=== PATIENT | female | born 1955 | race Caucasian/White ===

== ENCOUNTER → 2016-07-27 | Outpatient (REF) | payer MEDICARE, OTHER ==
[~2016-07-27] MED LIST: AMBI10TA PO; ATIV1TAB10 PO; CALCIUM+D PO; CARV12.5 PO; CELE40TA PO; CENTTAB47 PO; CLAR5TAB PO; CRES20TA PO; DOCU10CA PO; DULO30CA PO; FURO20TA2 PO; GLUC1CAP9 PO; NAPR375T PO; PERC5TAB6 PO; RANI1TAB6 PO; STOO100C PO; TRAM50TA2 PO; VERA1TAB11 PO; VICO7.5T11 PO; VITA200016 PO
[2016-07-27 11:37] LABS: MEAN CORPUSCULAR HEMOGLOBIN 28.8 pg (27.0-33.0); MEAN CORPUSCULAR HGB CONC 32.7 g/dl (32.0-36.5); MEAN CORPUSCULAR VOLUME 88.2 fl (80.0-96.0); RED CELL DISTRIBUTION WIDTH 12.8 % (11.5-14.5); WHITE BLOOD COUNT 9.6 K/mm3 (4.0-10.0)
[2016-07-27 11:58] LABS: ALBUMIN 3.8 GM/DL (3.2-5.2); ALBUMIN/GLOBULIN RATIO 1.31 (1.00-1.93); BILIRUBIN,TOTAL 0.3 MG/DL (0.2-1.0); CALCIUM LEVEL 8.2 MG/DL (8.8-10.2); CREATININE FOR GFR 1.31 MG/DL (0.55-1.02); GLOMERULAR FILTRATION RATE 43.8 (>45); POTASSIUM SERUM 4.4 MEQ/L (3.5-5.1); TOTAL PROTEIN 6.7 GM/DL (6.4-8.2)
== END ==
LOC: M SFHCCLAY 06:50
PROVIDERS: ATTEND Nurse Practitioner Family
DX: I10 Essential (primary) hypertension (principal); E78.4 Other hyperlipidemia; E55.9 Vitamin D deficiency, unspecified

== ENCOUNTER → 2016-10-06 | Outpatient (CLI) | payer MEDICARE, OTHER ==
--- NOTE | 2016-10-06 09:43 | REP ---
RENAL NUCLEAR SCAN WITH FLOW AND FUNCTION: Following the intravenous administration of 8.7 mCi of technetium 99m MAG-3, immediate flow images are obtained in the posterior projection showing symmetrical blood flow. Delayed renal function images are performed in the posterior projection for 30 minutes. No parenchymal defect is seen. There is bilateral cortical washout which appears somewhat delayed. There is bilateral excretion with no hydronephrosis or evidence of urinary tract obstruction. Split function is 51% on the left and 48.3% on the right. Time to peak is somewhat delayed bilaterally, 5 minutes on the left and 7 minutes on the right. T1/2 is 27.9 minutes on the left and could not be calculated on the right as it is in excess of 30 minutes. Renal function curves are moderately shallow in their downward slopes. There is minimal post void residual in the urinary bladder after voiding. IMPRESSION: Moderately diminished function of both kidneys. No hydronephrosis or evidence of urinary tract obstruction. Signed by Bertin Coyne MD 10/06/2016 03:25 P
--- NOTE | 2016-10-06 10:33 | REP ---
Urinary tract sonography: History: Chronic renal disease. Hypertension. Findings: Scanning at the level of the urinary bladder shows that it is empty at the time of scanning. Renal cortical echogenicity pattern is normal. There is a 1.2 cm cyst in the upper pole of the right kidney and a 3.1 cm cyst is seen in the upper pole of the left kidney. There is no evidence of renal mass on either side. Right renal dimensions are 9.6 x 4.5 x 5.0 cm. Left kidney measures 9.2 x 5.6 x 5.2 cm. Impression: There is a simple cyst in the upper pole of each kidney. No other abnormality. Signed by Edwin Clarke MD 10/06/2016 11:22 A
== END ==
LOC: M RAD 06:53
PROVIDERS: ATTEND Internal Medicine Nephrology
DX: I15.0 Renovascular hypertension (principal); N18.3 Chronic kidney disease, stage 3 (moderate); Q61.02 Congenital multiple renal cysts
CPT/HCPCS: 76775; 78707; A9562

== ENCOUNTER → 2016-11-21 | Outpatient (REF) | payer MEDICARE, OTHER | LOC: M SFHCCLAY 06:52 | PROVIDERS: ATTEND Nurse Practitioner Family | DX: E78.4 Other hyperlipidemia (principal); E55.9 Vitamin D deficiency, unspecified ==

== ENCOUNTER → 2016-11-23 | Outpatient (REF) | payer MEDICARE, OTHER | LOC: M SFHCCLAY 10:47 | PROVIDERS: ATTEND Nurse Practitioner Family | DX: I10 Essential (primary) hypertension (principal) | CPT/HCPCS: 86803; G0463 ==

== ENCOUNTER → 2017-02-15 | Outpatient (REF) | payer MEDICARE, OTHER ==
[~2017-02-15] MED LIST changes: +ASPI81TA85 PO; +CLAR1TAB13 PO; +FLON1SPR; +FOSA70TA PO; +NAPR-751 PO; +PERC5TAB12 PO; -PERC5TAB6 PO; +PLAV1TAB2 PO; +TOPI25TA10 PO; +VITA20008 PO; +VITA500T3 PO
== END ==
LOC: M SFHCCLAY 11:22
PROVIDERS: ATTEND Nurse Practitioner Family
DX: R19.7 Diarrhea, unspecified (principal)

== ENCOUNTER → 2017-03-02 | Outpatient (REF) | payer MEDICARE, OTHER ==
[2017-03-02 12:01] LABS: MEAN CORPUSCULAR HEMOGLOBIN 29.8 pg (27.0-33.0); MEAN CORPUSCULAR HGB CONC 33.3 g/dl (32.0-36.5); MEAN CORPUSCULAR VOLUME 89.5 fl (80.0-96.0); RED CELL DISTRIBUTION WIDTH 12.7 % (11.5-14.5)
[2017-03-02 12:41] LABS: ALBUMIN 3.7 GM/DL (3.2-5.2); ALBUMIN/GLOBULIN RATIO 1.28 (1.00-1.93); BILIRUBIN,TOTAL 0.3 MG/DL (0.2-1.0); CREATININE FOR GFR 1.22 MG/DL (0.55-1.02); GLOMERULAR FILTRATION RATE 47.5 (>45); POTASSIUM SERUM 4.2 MEQ/L (3.5-5.1); THYROXINE (T4) 11.8 UG/DL (4.5-12.0); TOTAL PROTEIN 6.6 GM/DL (6.4-8.2)
== END ==
LOC: M SFHCCLAY 07:25
PROVIDERS: ATTEND Nurse Practitioner Family
DX: R63.0 Anorexia (principal); E78.4 Other hyperlipidemia; R63.4 Abnormal weight loss; E55.9 Vitamin D deficiency, unspecified

== ENCOUNTER 2017-04-17 12:00 | Day surgery (SDC) | payer MEDICARE, OTHER ==
[~2017-04-17] VITALS: Ht 160 cm; Wt 85.7 kg
[~2017-04-17 12:00] MED LIST changes: -TOPI25TA10 PO; -VITA500T3 PO
[2017-04-17] MEDS ORDERED: LR 1,000 ML IV SCH (12:15)
[2017-04-17] MEDS ORDERED: PROPOFOL 200 MG/20 ML VIAL As Ordered ONE ×3 (14:56→15:18)
--- NOTE | 2017-04-17 15:34 | ROOR ---
Patient Name: Tianna Nick Procedure Date: 04/17/2017 2:22 PM Date of : 1955 Age: 61 Room: [facility] Gender: Female Note Status: Finalized Procedure: Upper GI endoscopy Indications: Dysphagia Providers: Brady Andersen MD Referring MD: Indira Bellamy NP Requesting Provider: Medicines: Monitored Anesthesia Care Complications: No immediate complications. Procedure: Pre-Anesthesia Assessment: - Prior to the procedure, a History and Physical was performed, and patient medications and allergies were reviewed. The patient is competent. The risks and benefits of the procedure and the sedation options and risks were discussed with the patient. All questions were answered and informed consent was obtained. Patient identification and proposed procedure were verified by the physician, the nurse and the miniature train driver in the procedure room. Mental Status Examination: alert and oriented. Airway Examination: normal oropharyngeal airway and neck mobility. CV Examination: regular rate and rhythm. Prophylactic Antibiotics: The patient does not require prophylactic antibiotics. Prior Anticoagulants: The patient has taken no previous anticoagulant or antiplatelet agents. ASA Grade Assessment: III - A patient with severe systemic disease. After reviewing the risks and benefits, the patient was deemed in satisfactory condition to undergo the procedure. The anesthesia plan was to use monitored anesthesia care (MAC). Immediately prior to administration of medications, the patient was re-assessed for adequacy to receive sedatives. The heart rate, respiratory rate, oxygen saturations, blood pressure, adequacy of pulmonary ventilation, and response to care were monitored throughout the procedure. The physical status of the patient was re-assessed after the procedure. The Endoscope was introduced through the mouth, and advanced to the third part of duodenum. The upper GI endoscopy was accomplished without difficulty. The patient tolerated the procedure well. Findings: One benign-appearing, intrinsic stenosis was found 34 cm from the incisors. This stenosis was moderately severe and measured 1.4 cm (inner diameter) x less than one cm (in length). The stenosis was traversed. A TTS dilator was passed through the scope. Dilation with a 15-16.5-18 mm balloon dilator was performed to 18 mm. The dilation site was examined following endoscope reinsertion and showed moderate improvement in luminal narrowing. Diffuse moderately erythematous mucosa without bleeding was found on the greater curvature of the stomach, in the gastric antrum and in the prepyloric region of the stomach. The examined duodenum was normal. Impression: - Benign-appearing esophageal stenosis. Dilated. - Erythematous mucosa in the greater curvature, antrum and prepyloric region of the stomach. - Normal examined duodenum. - No specimens collected. Recommendation: - Discharge patient to home. - Resume previous diet. - Continue present medications. - Await pathology results. - Return to my office in 2 weeks. Brady Andersen MD 04/17/2017 3:33:58 PM Number of Addenda: 0 Note Initiated On: 04/17/2017 2:22 PM Estimated Blood Loss: Estimated blood loss was minimal.
[2017-04-17 15:50] VITALS: BP 139/85
--- NOTE | 2017-04-17 16:17 | ROOR ---
Patient Name: Tianna Nick Procedure Date: 04/17/2017 2:23 PM Date of : 1955 Age: 61 Gender: Female Note Status: Finalized Procedure: Colonoscopy Indications: Screening for colorectal malignant neoplasm Providers: Brady Andersen MD Referring MD: Indira Bellamy NP Requesting Provider: Medicines: Monitored Anesthesia Care Complications: No immediate complications. Procedure: Pre-Anesthesia Assessment: - Prior to the procedure, a History and Physical was performed, and patient medications and allergies were reviewed. The patient is competent. The risks and benefits of the procedure and the sedation options and risks were discussed with the patient. All questions were answered and informed consent was obtained. Patient identification and proposed procedure were verified by the physician, the nurse and the third rail installer in the procedure room. Mental Status Examination: alert and oriented. Airway Examination: normal oropharyngeal airway and neck mobility. CV Examination: regular rate and rhythm. Prophylactic Antibiotics: The patient does not require prophylactic antibiotics. Prior Anticoagulants: The patient has taken no previous anticoagulant or antiplatelet agents. ASA Grade Assessment: III - A patient with severe systemic disease. After reviewing the risks and benefits, the patient was deemed in satisfactory condition to undergo the procedure. The anesthesia plan was to use monitored anesthesia care (MAC). Immediately prior to administration of medications, the patient was re-assessed for adequacy to receive sedatives. The heart rate, respiratory rate, oxygen saturations, blood pressure, adequacy of pulmonary ventilation, and response to care were monitored throughout the procedure. The physical status of the patient was re-assessed after the procedure. The Colonoscope was introduced through the anus and advanced to the cecum, identified by appendiceal orifice and ileocecal valve. The colonoscopy was somewhat difficult due to vigorous peristalsis. The patient tolerated the procedure well. The quality of the bowel preparation was good. Findings: The perianal and digital rectal examinations were normal. Multiple medium-mouthed diverticula were found in the sigmoid colon. A 15 mm polyp was found in the distal ascending colon. The polyp was flat. The polyp was removed with a hot snare. Polyp resection was incomplete, and the resected tissue was partially retrieved. Polyp resection was incomplete due to the polypectomy being technically difficult and complex. A 8 mm polyp was found in the proximal transverse colon. The polyp was sessile. The polyp was removed with a hot snare. Resection and retrieval were complete. Impression: - Diverticulosis in the sigmoid colon. - One 15 mm polyp in the distal ascending colon, removed with a hot snare. Polyp resection was incomplete, and the resected tissue was partially retrieved. - One 8 mm polyp in the proximal transverse colon, removed with a hot snare. Resected and retrieved. Recommendation: - Await pathology results. - Discharge patient to home. - Resume previous diet. - Continue present medications. - Return to endoscopist in 2 weeks. Brady Andersen MD 04/17/2017 4:16:35 PM Number of Addenda: 0 Note Initiated On: 04/17/2017 2:23 PM Estimated Blood Loss: Estimated blood loss was minimal.
[2017-05-03] MEDS ORDERED: VITA500T3 PO (08:28)
[2017-05-03] MEDS ORDERED: TOPI25TA10 PO (08:28)
== END 2017-04-17 16:08 | disposition home or self-care (01) ==
LOC: M OPP 12:00
PROVIDERS: ATTEND Surgery
DX: Z12.11 Encounter for screening for malignant neoplasm of colon (principal); D12.2 Benign neoplasm of ascending colon; D12.3 Benign neoplasm of transverse colon; K57.30 Diverticulosis of large intestine without perforation or abscess without bleeding; K22.2 Esophageal obstruction; R13.10 Dysphagia, unspecified; K21.9 Gastro-esophageal reflux disease without esophagitis; J32.9 Chronic sinusitis, unspecified; G43.709 Chronic migraine without aura, not intractable, without status migrainosus; I10 Essential (primary) hypertension; I25.2 Old myocardial infarction; I25.10 Atherosclerotic heart disease of native coronary artery without angina pectoris; Z98.61 Coronary angioplasty status; F41.9 Anxiety disorder, unspecified; E78.00 Pure hypercholesterolemia, unspecified; E66.01 Morbid (severe) obesity due to excess calories; F32.9 Major depressive disorder, single episode, unspecified; E55.9 Vitamin D deficiency, unspecified; F17.210 Nicotine dependence, cigarettes, uncomplicated; Z79.02 Long term (current) use of antithrombotics/antiplatelets; Z79.82 Long term (current) use of aspirin; Z79.899 Other long term (current) drug therapy; Z88.5 Allergy status to narcotic agent

== ENCOUNTER 2017-05-15 06:55 | Day surgery (SDC) | payer MEDICARE, OTHER ==
[~2017-05-15] VITALS: Ht 160 cm; Wt 85.3 kg
[~2017-05-15 06:55] MED LIST changes: +TOPI25TA10 PO; +VITA500T3 PO
[2017-05-15] MEDS ORDERED: LR 1,000 ML IV SCH ×3 (07:00→11:00)
[2017-05-15] MEDS ORDERED: METHYLENE BLUE 0.5% (5MG/ML) 10 ML AMP (PROVAYBLUE)(Q9968 PER 1MG) As Ordered ONE (08:39)
[2017-05-15] MEDS ORDERED: EPINEPHrine 1MG/10ML SYRINGE 1.5IN As Ordered ONE (08:39)
[2017-05-15] MEDS ORDERED: LIDOCAINE W/EPINEPHRINE 1% 20ML VIAL As Ordered ONE ×2 (08:39→08:40)
[2017-05-15] MEDS ORDERED: EPINEPHrine 1MG/ML INJ 30ML MD-VIAL As Ordered ONE (08:41)
[2017-05-15] MEDS ORDERED: MIDAZOLAM INJ 2 MG/2 ML VIAL (J2250) As Ordered ONE (09:12)
[2017-05-15] MEDS ORDERED: fentaNYL 250 MCG/5 ML INJECTION (J3010) As Ordered ONE (09:13)
[2017-05-15] MEDS ORDERED: PROPOFOL 500 MG/50 ML VIAL As Ordered ONE (09:13)
[2017-05-15] MEDS ORDERED: ROCURONIUM BROMIDE 50 MG/5 ML VIAL/SYRINGE As Ordered ONE (09:14)
[2017-05-15] MEDS ORDERED: LIDOCAINE 2% INJ 100 MG/5 ML SDV (FOR ANES.) As Ordered ONE (09:14)
[2017-05-15] MEDS ORDERED: dexameTHASONE 4 MG/ML 1ML VIAL (J1100) As Ordered ONE (09:14)
[2017-05-15] MEDS ORDERED: ONDANSETRON 4MG/2ML VIAL (J2405) As Ordered ONE (09:14)
[2017-05-15] MEDS ORDERED: PHENYLephrine HCL 500 MCG/5 ML (100MCG/ML) SYRINGE (J2370) As Ordered ONE (09:15)
[2017-05-15] MEDS ORDERED: ePHEDrine SULFATE 25 MG/5 ML(5MG/ML) SYRINGE As Ordered ONE (09:15)
[2017-05-15] MEDS ORDERED: NEOSTIGMINE 10 MG/10 ML VIAL (J2710) As Ordered ONE (10:29)
[2017-05-15] MEDS ORDERED: GLYCOPYRROLATE INJ 0.2 MG/ML 2 ML VIAL As Ordered ONE (10:29)
[2017-05-15] MEDS ORDERED: LABETALOL HCL 100 MG/20 ML VIAL As Ordered ONE (10:32)
[2017-05-15] MEDS ORDERED: MEPERIDINE INJ 25 MG/ML VIAL (J2175) IV PRN (11:00)
[2017-05-15] MEDS ORDERED: NORCO, ANEXSIA 5/325MG TABLET (HYDROcodone/ACETAMINOPHEN) PO PRN (11:00)
[2017-05-15] MEDS ORDERED: ONDANSETRON 4MG/2ML VIAL (J2405) IV PRN (11:00)
[2017-05-15] MEDS ORDERED: fentaNYL 100 MCG/2 ML INJECTION (J3010) IV PRN (11:00)
[2017-05-15] MEDS ORDERED: ACETAMINOPH W/CODEINE #3 TAB UD PO PRN (11:00)
--- NOTE | 2017-05-15 11:02 | RO ---
DATE OF PROCEDURE: 05/15/2017 PREPROCEDURE DIAGNOSES: Recurrent rhinosinusitis, right nasal valve collapse, nasoseptal deviation. POSTPROCEDURE DIAGNOSES: Recurrent rhinosinusitis, right nasal valve collapse, nasoseptal deviation. OPERATIVE PROCEDURE: Septoplasty, bilateral ethmoidectomy, right nasal valve repair, turbinectomy. SURGEON: Gerard Mccollum MD RAILWAY HEAD TENDER: ANESTHESIA: FINDINGS: The patient had more bleeding than usual. Estimated blood loss was 100 mL. The patient had been taking Plavix before but had stopped preoperatively. There was some thickened mucosa in ethmoid air cells. Because of the amount of bleeding, I decided not to complete the enterostomy part of the procedure. DESCRIPTION OF PROCEDURE: Under general anesthesia, with the patient intubated, patient draped in the usual manner, I used pledgets of adrenaline 1:100,000, infiltrated with lidocaine and epinephrine. I started first by making an incision in the septum on the left side. I elevated the subperichondrial plane. I the ethmoid plate from the quadrangular cartilage. I removed portions of the cartilage and ethmoid plate, which were deviated, to allow me access into the sinus on the left side where it was deviated. That incision was closed with #4-0 Vicryl. Then, on the right side using the microdebrider, I removed the anterior portion of the middle turbinate. I then opened the anterior ethmoid air cells directing posteriorly. There was thickened mucosa in this area. I removed the uncinate process. I could not identify the natural sinus osteum. The same procedure was performed on the left side, except I only removed the lateral portion of the middle turbinate. I opened up into the ethmoid air cells. Once this was done, there was quite a bit of bleeding. I did use again pledgets of adrenaline 1:100,000. Eventually, the bleeding did slow down. I put Stammberger's splint in the uncinate process on both sides. At the end of the procedure, there was no further bleeding. The patient tolerated the procedure well. Actually, at this point in time, I then made an incision anterior to the inferior aspect of the nasal bone on the right side. I used the drill and drilled two holes and then put a suture from the nasal bone around the lateral crest of the lower and upper lateral cartilage and tied that to prevent collapse. The patient was then extubated and transferred to the recovery room in excellent condition.
[2017-05-15] MEDS ORDERED: METOCLOPRAMIDE INJ 10MG/2ML VIAL (J2765) IV PRN (11:15)
[2017-05-15 11:45] VITALS: BP 121/71
== END 2017-05-15 11:56 | disposition home or self-care (01) ==
LOC: M SDC 06:55
PROVIDERS: ATTEND Otolaryngology
DX: J34.2 Deviated nasal septum (principal); J32.9 Chronic sinusitis, unspecified; J34.89 Other specified disorders of nose and nasal sinuses; I12.9 Hypertensive chronic kidney disease with stage 1 through stage 4 chronic kidney disease, or unspecified chronic kidney disease; I25.10 Atherosclerotic heart disease of native coronary artery without angina pectoris; I25.2 Old myocardial infarction; E78.5 Hyperlipidemia, unspecified; R19.4 Change in bowel habit; M17.0 Bilateral primary osteoarthritis of knee; M54.9 Dorsalgia, unspecified; F41.9 Anxiety disorder, unspecified; F32.9 Major depressive disorder, single episode, unspecified; R51 Headache; R06.83 Snoring; G47.33 Obstructive sleep apnea (adult) (pediatric); E55.9 Vitamin D deficiency, unspecified; E78.00 Pure hypercholesterolemia, unspecified; N18.3 Chronic kidney disease, stage 3 (moderate); E66.9 Obesity, unspecified; F17.210 Nicotine dependence, cigarettes, uncomplicated; G47.00 Insomnia, unspecified; R73.01 Impaired fasting glucose; I73.9 Peripheral vascular disease, unspecified; K21.9 Gastro-esophageal reflux disease without esophagitis; T88.59XD Other complications of anesthesia, subsequent encounter; M85.80 Other specified disorders of bone density and structure, unspecified site; Z88.5 Allergy status to narcotic agent; Z79.899 Other long term (current) drug therapy; Z79.82 Long term (current) use of aspirin; Z79.01 Long term (current) use of anticoagulants; Z90.710 Acquired absence of both cervix and uterus; Z78.0 Asymptomatic menopausal state; Z98.51 Tubal ligation status; Z72.0 Tobacco use; Z96.1 Presence of intraocular lens; Z95.5 Presence of coronary angioplasty implant and graft
CPT/HCPCS: 30130; 30465; 30520; 31254; 88300; J1100; J2250; J2370; J2405; J2710; J3010; Q9968

== ENCOUNTER → 2017-05-29 | Outpatient (REF) | payer MEDICARE, OTHER | LOC: M SFHCCLAY 06:57 | PROVIDERS: ATTEND Nurse Practitioner Family | DX: R73.01 Impaired fasting glucose (principal); E78.4 Other hyperlipidemia; E55.9 Vitamin D deficiency, unspecified ==

== ENCOUNTER → 2017-06-05 | Outpatient (REF) | payer MEDICARE, OTHER ==
[2017-06-06 14:15] LABS: RUBELLA IgG FOR TORCH EVAL >33.00 index (Immune >0.99)
== END ==
LOC: M SFHCCLAY 09:52
PROVIDERS: ATTEND Nurse Practitioner Family
DX: Z11.1 Encounter for screening for respiratory tuberculosis (principal)

== ENCOUNTER → 2017-06-26 | Outpatient (REF) | payer MEDICARE, OTHER ==
[2017-06-26 11:27] LABS: BASO # 0.1 10^3/uL (0.0-0.2); BASO % 1.2 % (0.0-1.0); EOS # 0.2 10^3/uL (0.0-0.50); EOS % 2.2 % (0.0-3.0); HEMATOCRIT 39.5 % (36.0-47.0); HEMOGLOBIN 12.7 g/dl (12.0-16.0); IMMATURE GRANULOCYTE % 0.2 % (0-0); LYMPH # 2.9 10^3/uL (1.5-4.5); LYMPH % 32.1 % (24.0-44.0); MEAN CORPUSCULAR HEMOGLOBIN 28.6 pg (27.0-33.0); MEAN CORPUSCULAR HGB CONC 32.2 g/dl (32.0-36.5); MONO # 0.9 10^3/uL (0.0-0.8); NEUTROPHILS # 4.9 10^3/uL (1.8-7.7); NEUTROPHILS % 54.3 % (36.0-66.0); PLATELET COUNT, AUTOMATED 311 10^3/uL (150-450); RED BLOOD COUNT 4.44 10^6/uL (4.00-5.40); RED CELL DISTRIBUTION WIDTH 13.4 % (11.5-14.5); WHITE BLOOD COUNT 8.9 10^3/uL (4.0-10.0)
== END ==
LOC: M SFHCCLAY 09:00
DX: I10 Essential (primary) hypertension (principal)
CPT/HCPCS: 85025

== ENCOUNTER → 2017-09-21 | Outpatient (REF) | payer MEDICARE, OTHER ==
[2017-09-21 12:05] LABS: CHOLESTEROL LEVEL 144 MG/DL (<200); CHOLESTEROL RISK RATIO 2.938 (<5); HDL CHOLESTEROL 49 MG/DL (>40); LDL CHOLESTEROL 42.8 MG/DL (<100); NON-HDL-C 95 MG/DL; TRIGLYCERIDES LEVEL 261 MG/DL (<150)
[2017-09-21 12:09] LABS: TOTAL 25(OH) VITAMIN D 56.7 NG/ML (30.0-100.0)
== END ==
LOC: M SFHCCLAY 06:46
DX: E78.4 Other hyperlipidemia (principal); E55.9 Vitamin D deficiency, unspecified
CPT/HCPCS: 82306

== ENCOUNTER → 2018-01-17 | Outpatient (REF) | payer MEDICARE, OTHER ==
[2018-01-17 11:47] LABS: CHOLESTEROL LEVEL 148 MG/DL (<200); CHOLESTEROL RISK RATIO 2.596 (<5); HDL CHOLESTEROL 57 MG/DL (>40); LDL CHOLESTEROL 59.2 MG/DL (<100); NON-HDL-C 91 MG/DL; TRIGLYCERIDES LEVEL 159 MG/DL (<150)
[2018-01-17 11:54] LABS: TOTAL 25(OH) VITAMIN D 43.5 NG/ML (30.0-100.0)
== END ==
LOC: M SFHCCLAY 07:36
DX: E78.4 Other hyperlipidemia (principal); E55.9 Vitamin D deficiency, unspecified
CPT/HCPCS: 82306

== ENCOUNTER → 2018-02-14 | Outpatient (CLI) | payer MEDICARE, OTHER | LOC: M CLY 09:11 | DX: S20.211A Contusion of right front wall of thorax, initial encounter (principal); X58.XXXA Exposure to other specified factors, initial encounter; Y92.89 Other specified places as the place of occurrence of the external cause; R91.8 Other nonspecific abnormal finding of lung field | CPT/HCPCS: 71111; G0463 ==

== ENCOUNTER → 2018-04-23 | Outpatient (REF) | payer MEDICARE, OTHER ==
[2018-04-23 11:42] LABS: HEMATOCRIT 43.6 % (36.0-47.0); HEMOGLOBIN 14.1 g/dl (12.0-15.5); MEAN CORPUSCULAR HEMOGLOBIN 28.4 pg (27.0-33.0); MEAN CORPUSCULAR HGB CONC 32.3 g/dl (32.0-36.5); MEAN CORPUSCULAR VOLUME 87.7 fl (80.0-96.0); PLATELET COUNT, AUTOMATED 317 10^3/uL (150-450); RED BLOOD COUNT 4.97 10^6/uL (4.00-5.40); RED CELL DISTRIBUTION WIDTH 13.5 % (11.5-14.5); WHITE BLOOD COUNT 11.4 10^3/uL (4.0-10.0)
[2018-04-23 12:47] LABS: ALBUMIN 3.7 GM/DL (3.2-5.2); ALBUMIN/GLOBULIN RATIO 1.23 (1.00-1.93); ALKALINE PHOSPHATASE 87 U/L (45-117); ALT/SGPT 16 U/L (12-78); ANION GAP 7 MEQ/L (8-16); AST/SGOT 7 U/L (7-37); BILIRUBIN,TOTAL 0.3 MG/DL (0.2-1.0); BLOOD UREA NITROGEN 29 MG/DL (7-18); CALCIUM LEVEL 8.8 MG/DL (8.8-10.2); CARBON DIOXIDE LEVEL 27 MEQ/L (21-32); CHLORIDE LEVEL 105 MEQ/L (98-107); CHOLESTEROL LEVEL 151 MG/DL (<200); CHOLESTEROL RISK RATIO 2.849 (<5); CREATININE FOR GFR 1.28 MG/DL (0.55-1.30); GLOMERULAR FILTRATION RATE 44.8 (>45); GLUCOSE, FASTING 90 MG/DL (70-100); HDL CHOLESTEROL 53 MG/DL (>40); LDL CHOLESTEROL 65 MG/DL (<100); NON-HDL-C 98 MG/DL; POTASSIUM SERUM 4.2 MEQ/L (3.5-5.1); SODIUM LEVEL 139 MEQ/L (136-145); TOTAL 25(OH) VITAMIN D 62.2 NG/ML (30.0-100.0); TOTAL PROTEIN 6.7 GM/DL (6.4-8.2); TRIGLYCERIDES LEVEL 166 MG/DL (<150)
== END ==
LOC: M SFHCCLAY 07:03
DX: K21.9 Gastro-esophageal reflux disease without esophagitis (principal); I10 Essential (primary) hypertension; E78.49 Other hyperlipidemia; E55.9 Vitamin D deficiency, unspecified
CPT/HCPCS: 80053

== ENCOUNTER → 2018-07-29 | Outpatient (REF) | payer MEDICARE, OTHER ==
[2018-07-29 12:29] LABS: CHOLESTEROL RISK RATIO 2.603 (<5); CREATININE FOR GFR 1.41 MG/DL (0.55-1.30)
== END ==
LOC: M SFHCCLAY 07:16
PROVIDERS: ATTEND Nurse Practitioner Family
DX: I10 Essential (primary) hypertension (principal); E78.49 Other hyperlipidemia

== ENCOUNTER 2018-08-20 10:09 | Emergency (ER) | payer MEDICARE, OTHER ==
[~2018-08-20] VITALS: Ht 157.5 cm; Wt 89.1 kg
[~2018-08-20 10:09] MED LIST changes: -NORC1TAB4 PO; -NORCOTAB PO
--- NOTE | 2018-08-20 10:50 | REP ---
Clinical: Acute chest pain . Comparison: 04/06/2017 . Findings: The mediastinum and cardiac silhouette are stable and within normal limits for portable technique. The lung bah are clear without acute consolidation, effusion, or pneumothorax. Skeletal structures are intact. Impression: No acute cardiopulmonary process appreciated. Electronically Signed by Bjorn Coronel MD 08/20/2018 10:42 A
[2018-08-20 10:54] LABS: BASO # 0.1 10^3/uL (0.0-0.2); BASO % 0.8 % (0.0-1.0); EOS # 0.1 10^3/uL (0.0-0.50); EOS % 0.7 % (0.0-3.0); HEMATOCRIT 38.5 % (36.0-47.0); HEMOGLOBIN 12.7 g/dl (12.0-15.5); LYMPH # 1.6 10^3/uL (1.5-4.5); LYMPH % 14.6 % (24.0-44.0); MEAN CORPUSCULAR HEMOGLOBIN 29.3 pg (27.0-33.0); MEAN CORPUSCULAR VOLUME 88.9 fl (80.0-96.0); MONO # 0.3 10^3/uL (0.0-0.8); MONO % 2.9 % (0.0-5.0); NEUTROPHILS # 8.6 10^3/uL (1.8-7.7); NEUTROPHILS % 80.7 % (36.0-66.0); PLATELET COUNT, AUTOMATED 272 10^3/uL (150-450); RED BLOOD COUNT 4.33 10^6/uL (4.00-5.40); WHITE BLOOD COUNT 10.7 10^3/uL (4.0-10.0)
[2018-08-20 11:08] LABS: INR 1.03; PROTHROMBIN TIME 13.6 SECONDS (12.1-14.4)
[2018-08-20 11:25] LABS: ALBUMIN 3.8 GM/DL (3.2-5.2); ALT/SGPT 15 U/L (12-78); BILIRUBIN,DIRECT < 0.1 MG/DL (0.0-0.2); BILIRUBIN,TOTAL 0.3 MG/DL (0.2-1.0); BLOOD UREA NITROGEN 18 MG/DL (7-18); CALCIUM LEVEL 8.7 MG/DL (8.8-10.2); CARBON DIOXIDE LEVEL 27 MEQ/L (21-32); CHLORIDE LEVEL 107 MEQ/L (98-107); CK-MB VALUE MASS < 1.0 NG/ML (<3.6); CPK CREATINE PHOSPHOKINASE 55 U/L (26-192); CREATININE FOR GFR 1.28 MG/DL (0.55-1.30); GLOMERULAR FILTRATION RATE 44.7 (>45); GLUCOSE, FASTING 96 MG/DL (70-100); LIPASE 118 U/L (73-393); MB/CK RELATIVE INDEX 1.82 (< OR =4); NT-PRO BNP 642 PG/ML (<125); POTASSIUM SERUM 4.4 MEQ/L (3.5-5.1); SODIUM LEVEL 141 MEQ/L (136-145); TOTAL PROTEIN 6.7 GM/DL (6.4-8.2); TROPONIN I < 0.02 NG/ML (< 0.10)
[2018-08-20 11:34] LABS: D-DIMER QUANT 658.18 ng/ml (<500)
[2018-08-20] MEDS ORDERED: ISOVUE-370 76% 100ML VIAL (Q9967) As Ordered ONE (13:15)
--- NOTE | 2018-08-20 14:52 | REP ---
Clinical: Acute chest pain with elevated D-dimer levels. Comparison: 11/02/2015 Technique: Axial contrast enhanced images from the thoracic inlet to the upper abdomen using 100 ml Isovue 370 intravenous contrast material with coronal and sagittal re-formations. Findings: Satisfactory enhancement of the pulmonary vasculature is achieved and no filling defects are identified to suggest pulmonary embolus. Thoracic aorta demonstrates atherosclerotic changes without aortic aneurysm or dissection. Mild cardiomegaly noted along with atherosclerotic changes to the coronary arteries. No pericardial effusion. No adenopathy. The bilateral lung bah demonstrate moderate chronic emphysematous changes without acute consolidation, pleural effusion or pneumothorax. Surrounding musculoskeletal structures without acute process. Impression: No evidence for pulmonary embolus. No acute pleuroparenchymal or mediastinal process. Moderate emphysematous disease. Electronically Signed by Bjorn Coronel MD 08/20/2018 02:42 P
[2018-08-20] MEDS ORDERED: NORC1TAB4 PO (14:56)
[2018-08-20] MEDS ORDERED: NORCOTAB PO (14:58)
[2018-08-20 15:17] VITALS: BP 128/61
[2018-08-20] MEDS ORDERED: NORCO, ANEXSIA 5/325MG TABLET (HYDROcodone/ACETAMINOPHEN) PO ONE (15:30)
--- NOTE | 2018-08-21 20:30 | ECGEPIP ---
Stationary ECG Study [facility] - ED Test Date: 2018-08-20 Pat Name: MIRIAM ESCALANTE Department: Room: - Gender: F [employer] Reactor Operator: : 1955 Requested By: Susu Oconnor Order Number: [id number] Reading MD: Susu Oconnor Measurements Intervals [place] Rate: 63 P: 47 [place]: 174 QRS: 41 QRSD: 87 T: 55 QT: 458 QTc: 469 Interpretive Statements SINUS RHYTHM PROLONGED QTC NSTTW ABNORMALITY SIMILAR 11/05/15 Electronically Signed On 08-21-2018 20:30:27 EST by Susu Oconnor
== END 2018-08-20 15:34 | disposition home or self-care (01) ==
LOC: M ED 10:09
DX: R07.9 Chest pain, unspecified (principal); R06.02 Shortness of breath; I10 Essential (primary) hypertension; G43.909 Migraine, unspecified, not intractable, without status migrainosus; F32.9 Major depressive disorder, single episode, unspecified; E78.9 Disorder of lipoprotein metabolism, unspecified; Z95.5 Presence of coronary angioplasty implant and graft; Z95.2 Presence of prosthetic heart valve; F17.200 Nicotine dependence, unspecified, uncomplicated; Z88.5 Allergy status to narcotic agent; Z79.899 Other long term (current) drug therapy; Z79.02 Long term (current) use of antithrombotics/antiplatelets; Z79.82 Long term (current) use of aspirin; Z12.31 Encounter for screening mammogram for malignant neoplasm of breast; Z80.3 Family history of malignant neoplasm of breast; M85.88 Other specified disorders of bone density and structure, other site; M85.852 Other specified disorders of bone density and structure, left thigh
CPT/HCPCS: 71045; 71275; 77063; 77067; 77080; 80048; 80076; 82550; 82553; 83690; 83880; 84443; 84484; 85025; 85379; 85610; 93005; 93041; 94760; 99285; Q9967

== ENCOUNTER → 2018-08-20 | Outpatient (CLI) | payer MEDICARE, OTHER ==
[~2018-08-20] MED LIST changes: +NORC1TAB4 PO; +NORCOTAB PO
--- NOTE | 2018-08-20 11:10 | REPMRS ---
Patient History The patient states she has not had a clinical breast exam in over a year. Patient is postmenopausal. Family history of breast cancer under age 50 in maternal aunt. No Hormone Replacement Therapy Digital Woman Screen Mammo: August 20, 2018 - Exam #: [id number] Bilateral CC and MLO view(s) were taken. Technologist: Natalee Mejias, Technologist Prior study comparison: March 16, 2016, right breast digital mammo diagnostic unilateral, performed at [facility]. November 29, 2015, digital woman screen mammo performed at [facility]. December 25, 2012, digital woman screen mammo performed at [facility] to [facility]. FINDINGS: There are scattered fibroglandular densities. There has been no change in the appearance of the mammogram from the prior studies. There is a mild amount of scattered fibroglandular density which is fairly symmetric. There is no interval development of dominant mass, architectural distortion, or clustered microcalcification suggestive of malignancy. 3-D tomosynthesis shows no additional findings. Assessment: BI-RADS/ACR category 1 mammogram. Negative Mammogram. Recommendation Routine screening mammogram of both breasts in 1 year (for women over age 40). This patient's Lifetime Breast Cancer RIsk is estimated at 5.8 %. This mammogram was interpreted with the aid of an FDA-approved computer-aided dectection system. Electronically Signed By: Nabor Clarke MD 08/20/18 [id number]
--- NOTE | 2018-08-21 15:30 | DEXA ---
AP SPINE L1 - L4 0.872 -2.5 -1.0 LT FEMUR TOTAL 0.698 -2.5 -1.3 LT NECK 0.707 -2.4 -1.0 RT FEMUR TOTAL 0.694 -2.5 -1.4 RT NECK 0.658 -2.7 -1.3 TOTAL BODY TOTAL OTHER COMMENTS: There is low bone density of the spine. There is osteoporosis of the hips. The density of the spine has decreased 1.2% since the initial exam on 04/06/2005. The spine density has increased 0.1% since the most recent exam on 11/29/2015. The density of the left hip has decreased 20.8% since the initial exam on 04/06/2005. The density of the left hip has decreased 6.3% since the most recent exam on 11/29/2015. The density of the right hip has decreased 20.5% since the initial exam on 04/06/2005. The density of the right hip has decreased 6.6% since the most recent exam on 11/29/2015. FOLLOW-UP: Recommendation for the next bone density exam: 2 years. CASIE
== END ==
LOC: M WHC 09:12
PROVIDERS: ATTEND Nurse Practitioner Family
DX: Z12.31 Encounter for screening mammogram for malignant neoplasm of breast (principal); Z80.3 Family history of malignant neoplasm of breast; M85.88 Other specified disorders of bone density and structure, other site; M85.851 Other specified disorders of bone density and structure, right thigh; M85.852 Other specified disorders of bone density and structure, left thigh

== ENCOUNTER → 2019-03-10 | Outpatient (REF) | payer MEDICARE, OTHER ==
[~2019-03-10] MED LIST changes: -CRES20TA PO; +CRES20TA2 PO; +CYAN500T8 PO; -DULO30CA PO; +DULO30CA9 PO; +HYDR-3715 PO; +MM S100C PO; +NORC1TAB7 PO; +RANI-356 PO; -RANI1TAB6 PO; -STOO100C PO; +VERA180T3 PO; -VERA1TAB11 PO; -VICO7.5T11 PO; +VICO7.5T12 PO; -VITA500T3 PO
[2019-03-10 11:54] LABS: HEMATOCRIT 41.3 % (36.0-47.0); HEMOGLOBIN 13.2 g/dl (12.0-15.5); MEAN CORPUSCULAR HEMOGLOBIN 28.7 pg (27.0-33.0); MEAN CORPUSCULAR VOLUME 89.8 fl (80.0-96.0); PLATELET COUNT, AUTOMATED 288 10^3/uL (150-450)
[2019-03-10 12:33] LABS: ALBUMIN 3.3 GM/DL (3.2-5.2); BILIRUBIN,TOTAL 0.3 MG/DL (0.2-1.0); CALCIUM LEVEL 8.6 MG/DL (8.8-10.2); CHOLESTEROL RISK RATIO 5.155 (<5); CREATININE FOR GFR 1.2 MG/DL (0.55-1.30); GLOMERULAR FILTRATION RATE 48.1 (>45); POTASSIUM SERUM 4.7 MEQ/L (3.5-5.1); TOTAL PROTEIN 6.2 GM/DL (6.4-8.2)
[2019-03-10 12:36] LABS: TOTAL 25(OH) VITAMIN D 57.5 NG/ML (30.0-100.0)
== END ==
LOC: M SFHCCLAY 06:56
PROVIDERS: ATTEND Nurse Practitioner Family
DX: K21.9 Gastro-esophageal reflux disease without esophagitis (principal); I10 Essential (primary) hypertension; E78.49 Other hyperlipidemia; E55.9 Vitamin D deficiency, unspecified; Z79.82 Long term (current) use of aspirin; Z79.899 Other long term (current) drug therapy

== ENCOUNTER → 2019-03-19 | Outpatient (CLI) | payer MEDICARE, OTHER ==
[~2019-03-19] MED LIST changes: +CALC500T38 PO; +CALC600T18 PO; +CARV25TA PO; +COLA100C5 PO; +D 202000 PO; +DYMI137S; +MULTCAP PO; +POTA10CA32 PO
[2019-03-19 12:05] LABS: HEMOGLOBIN 13.6 g/dl (12.0-15.5); MEAN CORPUSCULAR HEMOGLOBIN 29.6 pg (27.0-33.0); MEAN CORPUSCULAR HGB CONC 32.4 g/dl (32.0-36.5); MEAN CORPUSCULAR VOLUME 91.3 fl (80.0-96.0); PLATELET COUNT, AUTOMATED 299 10^3/uL (150-450); WHITE BLOOD COUNT 8.3 10^3/uL (4.0-10.0)
[2019-03-19 12:18] LABS: PROTHROMBIN TIME 12.9 SECONDS (11.8-14.0)
[2019-03-19 12:44] LABS: ERYTHROCYTE SEDIMENTATION RATE 10 mm/hr (0-30)
[2019-03-19 12:54] LABS: ALBUMIN 3.6 GM/DL (3.2-5.2); BILIRUBIN,TOTAL 0.3 MG/DL (0.2-1.0); CALCIUM LEVEL 8.4 MG/DL (8.8-10.2); CREATININE FOR GFR 1.2 MG/DL (0.55-1.30); GLOMERULAR FILTRATION RATE 48.1 (>45); POTASSIUM SERUM 4.3 MEQ/L (3.5-5.1); TOTAL PROTEIN 6.6 GM/DL (6.4-8.2)
--- NOTE | 2019-03-19 13:17 | REP ---
The lung bah are clear. Comparison is 04/06/2017. The cardiac size is normal. The yang, mediastinum, and skeletal structures are unremarkable. Impression: Negative PA and lateral chest. PA and lateral chest: Electronically Signed by Bertin Tavares MD 03/19/2019 01:09 P
--- NOTE | 2019-03-20 21:08 | ECGEPIP ---
[facility] Test Date: 2019-03-19 Pat Name: MIRIAM ESCALANTE Department: Room: - Gender: Female Award Clerk: LARRY : 1955 Requested By: Fortino Sifuentes Order Number: [id number] Reading MD: Shay Valentine Measurements Intervals [place] Rate: 64 P: 60 PA: 200 QRS: 52 QRSD: 78 T: 62 QT: 461 QTc: 477 Interpretive Statements Normal sinus rhythm Nonspecific ST-T wave abnormalities No significant change when compared to prior tracing of 08/20/2018 Electronically Signed on 03-20-2019 21:08:26 EDT by Shay Valentine
== END ==
LOC: M LAB 11:22
PROVIDERS: ATTEND Orthopaedic Surgery
DX: Z01.818 Encounter for other preprocedural examination (principal); Z79.01 Long term (current) use of anticoagulants

== ENCOUNTER 2019-04-10 10:11 | Inpatient (IN) | payer MEDICARE, OTHER ==
--- NOTE | 2019-04-03 14:33 | HPE ---
DATE OF ADMISSION: 04/10/2019 ATTENDING PHYSICIAN: Dr. Fortino Manley. CHIEF COMPLAINT: Left knee pain and stiffness. HISTORY: This pleasant 63-year-old female patient with progressively worsening left knee pain and stiffness. She failed to improve with conservative management to include multiple injections. She has elected for surgery for her continued symptoms. She has been consented by Dr. Manley for a left total knee arthroplasty. She has pain with weightbearing activities and activities of daily living. X-rays of the left knee notable for end-stage degenerative changes of left knee. CURRENT MEDICATIONS: - carvedilol 12.5 mg one tablet twice per day - calcium 600 mg with vitamin D one tablet twice a day - Claritin-D 24 hours 10/240 mg one tablet daily as needed - 81 mg aspirin one tablet once per day. She will discontinue that 5 days prior to surgery. - [id number] mcg one to two sprays in each nostril as needed twice a day - topiramate 25 mg one tablet once per day - citalopram 40 mg one tablet twice a day - duloxetine 30 mg one tablet once per day - Zantac 150 mg one tablet twice a day - Fosamax 70 mg one tablet once per week - vitamin D 2000 units one tablet twice a day - Lasix 40 mg one tablet once per day - Ambien 10 mg one tablet at bedtime as needed - lorazepam 0.5 mg one tablet once per day - potassium 10 mEq one tablet once per day MEDICAL HISTORY INCLUDES: Hypertension. Osteopenia. Nicotine addiction. Depression. Obesity. Insomnia. Impaired fasting glucose. Hyperlipidemia. Fatty liver. Migraines. Gastric reflux disease. Peripheral edema. Chronic back pain. ALLERGIES: PERCOCET PAST SURGICAL HISTORY: She has had a total hysterectomy. She has had left eye surgery, lumbar surgery. Tooth extraction. Cataract surgery bilaterally. She has a left eye injections continuing. She has had three cardiac stents placed. She has had a colonoscopy, sinus surgery, valve repair and multiple teeth removed. FAMILY HISTORY: Noncontributory. SOCIAL HISTORY: She continues to smoke. She uses alcohol occasionally. REVIEW OF SYSTEMS: Denies fever or chills. Denies chest pain, shortness breath or cough. Denies difficulty breathing. Denies abdominal pain. Denies nausea or vomiting. Denies current difficulty with ambulation other than pain in that knee. She has pain with weightbearing. She just completed a course of prednisone and antibiotics for an upper respiratory tract infection. Her primary feels she is still a surgical candidate at this juncture. She currently has no chest pain or shortness breath and no cough. No recent fevers. PHYSICAL EXAMINATION: Alert well-nourished, well-developed female patient. Exam of the knee on the left side reveals the skin to be intact. Tenderness both medially and laterally. Patellar grind is irritable. No signs affects around the knee. Range of motion is near full with irritability extremes of range of motion. Neck is supple without adenopathy or jugular venous distention (JVD). Lungs are clear to auscultation without rales, though some scattered wheezes. Heart: Regular rate and rhythm. Abdomen: Bowel sounds are present. Current height 62 inches, weight 190 pounds, temperature 97.7, blood pressure 140/80, pulse 72, respirations 18. LABORATORY DATA: Sed rate 10, glucose 92. BUN 19, creatinine 1.2, sodium 140, potassium 4.3. PT 12.9, INR 1.0. IMPRESSION: Symptomatic osteoarthritis left knee. PLAN: She has consented for a left total knee arthroplasty by Dr. Manley. She was counseled on not to use any nonsteroidal anti-inflammatory drugs (NSAIDs) for 5 days prior to surgery.She pending a follow up with her primary on Sunday04/07/19 and I asked for update from her primary to be dictated and sent to our office and [facility] after her follow up on Sunday. CASIE
[~2019-04-10] VITALS: Ht 160 cm; Wt 89.7 kg
[~2019-04-10 10:11] MED LIST changes: +ACETAMINOPHEN 500 MG TAB PO ONE; +LIDOCAINE 1% MDV 20ML VIAL SQ PRN; +LR 1,000 ML IV ONE; +PREGABALIN 75 MG CAP(LYRICA) PO ONE; +ceFAZolin SOD 1 GM in D5W MINI-BAG PLUS 50 ML IV ONE; +ceFAZolin SOD 2 GM in IV 1 EA IV ONE; +fentaNYL 100 MCG/2 ML INJECTION (J3010) IV SCH
[2019-04-10] MEDS ORDERED: LIDOCAINE 2% INJ 100 MG/5 ML SDV (FOR ANES.) As Ordered ONE ×2 (10:27→11:40)
[2019-04-10] MEDS ORDERED: PROPOFOL 200 MG/20 ML VIAL As Ordered ONE ×2 (10:27→11:40)
[2019-04-10] MEDS ORDERED: PROPOFOL 500 MG/50 ML VIAL As Ordered ONE ×2 (10:30→14:25)
[2019-04-10] MEDS ORDERED: ONDANSETRON 4MG/2ML VIAL (J2405) As Ordered ONE (11:40)
[2019-04-10] MEDS ORDERED: fentaNYL 100 MCG/2 ML INJECTION (J3010) As Ordered ONE ×2 (11:40→12:51)
[2019-04-10] MEDS ORDERED: dexameTHASONE 4 MG/ML 1ML VIAL (J1100) As Ordered ONE (11:40)
[2019-04-10] MEDS ORDERED: MIDAZOLAM INJ 2 MG/2 ML VIAL (J2250) As Ordered ONE ×2 (11:41→12:51)
[2019-04-10] MEDS ORDERED: BUPIVACAINE/EPIN 0.25% 30 ML VIAL As Ordered ONE (12:48)
[2019-04-10] MEDS ORDERED: TRANEXAMIC ACID 100 MG/ML 10ML VIAL As Ordered ONE ×2 (12:48→15:13)
[2019-04-10] MEDS ORDERED: ceFAZolin 1GM INJ (J0690 PER 500MG) As Ordered ONE (12:49)
[2019-04-10] MEDS ORDERED: EPINEPHrine INJ 1 MG/ML 1ML AMP As Ordered ONE ×2 (12:49→15:14)
[2019-04-10] MEDS ORDERED: BUPIVACAINE HCL 0.25% 10 ML VIAL As Ordered ONE (12:49)
[2019-04-10] MEDS ORDERED: BUPIVACAINE LIPOSOME/PF 1.3% 20ML VIAL (13.3MG/ML)(EXPAREL)(C9290 PER1MG) As Ordered ONE (12:50)
[2019-04-10] MEDS: MIDAZOLAM INJ 2 MG/2 ML VIAL (J2250) IV PRN ×2 (13:04→13:06)
[2019-04-10] MEDS ORDERED: BUPIVACAINE HCL 0.5% 30 ML VIAL As Ordered ONE (14:29)
[2019-04-10] MEDS ORDERED: ONDANSETRON 4MG/2ML VIAL (J2405) IV PRN ×2 (16:15)
[2019-04-10] MEDS ORDERED: ACETAMINOPHEN TAB 650MG DOSE (2X325MG) PO PRN (16:15)
[2019-04-10] MEDS ORDERED: NORCO, ANEXSIA 5/325MG TABLET (HYDROcodone/ACETAMINOPHEN) PO PRN ×2 (16:15→16:30)
[2019-04-10] MEDS ORDERED: HYDROMORPHONE HCL 0.5 MG/ 0.5 ML SYRINGE (J1170 PER 1) IV PRN (16:15)
[2019-04-10] MEDS ORDERED: fentaNYL 100 MCG/2 ML INJECTION (J3010) IV PRN (16:15)
[2019-04-10] MEDS ORDERED: FLEET ENEMA PR PRN (16:15)
--- NOTE | 2019-04-10 16:34 | REP ---
Left knee: Two views. History: Postop. Comparison left knee radiographs August 05, 2008. Findings: AP and lateral views of the left knee demonstrate that the patient is status post left knee arthroplasty. Arthroplasty components are well aligned. Periarticular soft tissue emphysema and swelling is seen. There is an air-fluid level in the suprapatellar bursa. Impression: Status post left knee arthroplasty. Electronically Signed by Edwin Clarke MD 04/10/2019 04:26 P
[2019-04-10 16:42] VITALS: BP 140/78
--- NOTE | 2019-04-10 17:37 | CR.PDOC ---
General Date of Consultation: Apr 10, 2019 Referring Provider: Fortino Manley MD Attending Physician: TONY BRANDON MD Consultation REASON FOR CONSULTATION/CHIEF COMPLAINT: Medical Management s/p Elective total left knee replacement HISTORY OF PRESENT ILLNESS: Patient is a 63-year-old female who presented to [facility] for elective total left knee replacement. She has a diagnosis of osteoarthritis knees. Patient past medical history includes hypertension, osteopenia, depression, obesity, insomnia, gastroesophageal reflux disease and obstructive sleep apnea. Patient states that she does not wear CPAP, although she is supposed to. Patient and her daughter stated she had a surgery for her back in the past during which she had an adverse reaction to Percocet. She states that during her previous surgery she was given pain medication while in the hospital and also continued on her Ambien which she believes made her confused. Patient's daughter stated the patient has had no other surgical complications in the past. Patient is currently status post her elective left knee arthroplasty. She currently states that her pain is well-controlled. She has no nausea, vomiting, or diarrhea. She denies any chest pain, shortness of breath. Patient has been fairly normotensive since her surgery. ALLERGIES: Please see below. HOME MEDICATIONS: Please see below. PAST MEDICAL HISTORY: 1. Hypertension 2. Osteopenia 3. Tobacco Abuse 4. Depression/Anxiety 5. Insomnia/nightmares 6. Hyperlipidemia 7. Fatty Liver 8. Migraines 9. Gastric Esophageal Reflux Disease 10. Peripheral Lymphedema 11. Chronic back pain PAST SURGICAL HISTORY: 1. Total Hysterectomy 2. Lumbar surgery 3. Bilateral cataract surgery 4. Coronary disease, status post cardiac stent placement 3 5. Colonoscopy 6. Sinus surgery 7. Multiple dental surgeries with teeth removal FAMILY HISTORY: Patient has a family history of hypertension SOCIAL HISTORY: Patient is a current smoker. She denies any illegal or illicit drugs. Denies any IV drug use. She uses alcohol occasionally. REVIEW OF SYSTEMS: CONSTITUTIONAL: Denies unintentional weight loss or gain, night sweats, fevers, chills. HEENT:. Admits to chronic sinus congestion and seasonal allergies. Denies dysphagia CARDIOVASCULAR:. Denies chest pain, pressure. Denies palpitations or feelings of heart racing. RESPIRATORY: Denies Shortness of breath. Denies coughing,wheezing. GENITOURINARY: Denies dysuria, increased frequency, or increased urgency. MUSCULOSKELETAL: Admits to chronic lower back pain. Admits to chronic left and right knee pain. GASTROINTESTINAL:. Denies constipation, diarrhea. Denies nausea, vomiting. Denies any placed stools or dark tarry stools SKIN: Denies any rash or lesions NEUROLOGICAL: Denies any slurring or speech. Denies any change in her gait PSYCHIATRIC: Admits to history of depression and anxiety ENDOCRINE:. Denies any heat intolerance or cold intolerance. HEMATOLOGIC/LYMPHATIC:. Denies any easy bruising or bleeding. Denies any history of deep vein thrombosis or pulmonary embolism. ALLERGIC/IMMUNOLOGIC:. Admits to seasonal allergies. Admits to allergy to Percocet. PHYSICAL EXAMINATION: VITAL SIGNS: Please see below. GENERAL APPEARANCE: Patient is awake, alert and oriented. She is lying comfortably in bed. She does not appear to be in acute distress. She is pleasant and conversive. HEENT: Atraumatic, normocephalic. Eyes nonicteric. Trachea is midline., No conjunctival pallor RESPIRATORY:. Clear vesicular breath sounds bilaterally. Good respiratory effort No wheezes, rhonchi or rales. Symmetric chest expansion. CARDIOVASCULAR:. Normal S1, S2, regular rate and rhythm. No clicks, rubs or murmurs. No JVD. ABDOMEN:. Obese, soft, nondistended, nontender to palpation in all 4 quadrants. No rebound tenderness or guarding., Normoactive bowel sounds EXTREMITIES: No edema. Full and equal pulses bilateral upper and lower extremities. Left knee is bandaged. NEUROLOGICAL: No focal neurological deficits. PSYCHIATRIC:. Mood and Affect appear appropriate. LABORATORY DATA: Please see below. ASSESSMENT/PLAN: 1., Status post left knee arthroplasty -Patient is currently postop. Pain medications and anti-coagulations being managed by orthopedic surgery 2. Hypertension - Patient is a past mental history significant for hypertension. At home she takes carvedilol 25 mg by mouth twice a day and furosemide 20 g by mouth daily. She currently remains normotensive. The patient is currently postop. Therefore, we will hold her hypertensive medications for tonight. If patient becomes hypertensive overnight, may continue carvedilol 3. History of coronary artery disease -Patient is a history of coronary artery disease with stent placements 3 -Will continue aspirin 81 mg by mouth daily -Patient's carvedilol is currently being held this will be continued tomorrow. 4. Chronic back pain -Patient currently takes Cymbalta 30 mg, will continue. -Will hold patient's home Percocet 5. Depression\anxiety -Patient takes Celexa 40 mg by mouth twice a day this will be continued -Patient takes lorazepam 0.5 mg by mouth twice a day for anxiety. This medication will be held. However, we will continue it for possible withdrawal. 6. Insomnia -Patient takes Ambien at home. This will be held 7. Gastroesophageal reflux disease -Will continue Pepcid 8. Migraine headaches -Continue Topamax 25 mg daily by mouth 9. DVT prophylaxis -Currently being managed by orthopedic surgery. Patient will be continued on Xarelto 10 mg daily. I performed a history and physical examination of the patient and discussed their management with the above documenter. I reviewed the note and agree with the documented findings and plan of care. Vital Signs/I&O Vital Signs Date Time Temp Pulse Resp B/P (MAP) Pulse Ox O2 Delivery O2 Flow Rate FiO2 04/10/19 16:25 97.1 65 16 143/76 (98) 95 Room Air 04/10/19 16:10 2 Allergies Coded Allergies: oxycodone (Verified Adverse Reaction, Unknown, HALLUCINATIONS, 04/10/19) Home Medications Scheduled Alendronate Sodium (Fosamax) 70 Mg Tab, 70 MG PO QWEEK, (Reported) Ascorbate Calcium (Vitamin C) 500 Mg Tablet, 500 MG PO DAILY, (Reported) Azelastine/Fluticasone (Dymista Nasal [place]) 23 Gm [place].pump, 2 SPR NA BID, (Reported) Calcium Carbonate/Vitamin D3 (Calcium 600-Vit D3 400 Tablet) 1 Each Tablet, 1 TAB PO BID, (Reported) Carvedilol (Carvedilol) 25 Mg Tablet, 25 MG PO BID, (Reported) Cholecalciferol (Vitamin D3) (Vitamin D3) 2,000 Unit Tablet, 2,000 UNIT PO DAILY, (Reported) Citalopram Hydrobromide (Celexa) 40 Mg Tab, 40 MG PO BID, (Reported) Cyanocobalamin (Vitamin B-12) (Vitamin B-12) 500 Mcg Tab, 1,000 UNITS PO DAILY, (Reported) Docusate Sodium (Colace) 100 Mg Capsule, 200 MG PO BID, (Reported) Duloxetine Hcl (Duloxetine HCl) 30 Mg Cap, 30 MG PO QHS, (Reported) Furosemide (Furosemide) 20 Mg Tab, 20 MG PO DAILY, (Reported) Loratadine/Pseudoephedrine (Claritin-D 24 Hour Tablet) 1 Tab Tab, 1 TAB PO DAILY, (Reported) Multivitamin (Multivitamins) 1 Each Capsule, 1 CAP PO DAILY, (Reported) Ranitidine HCl (Ranitidine HCl) 150 Mg Tab, 150 MG PO BID, (Reported) Rivaroxaban (Xarelto) 10 Mg Tablet, 10 MG PO DAILY for 12 Days, #12 Topiramate (Topiramate) 25 Mg Tab, 25 MG PO DAILY, (Reported) Zolpidem Tartrate (Ambien) 10 Mg Tab, 10 MG PO QHS, (Reported) Scheduled PRN Hydrocodone/Acetaminophen (Hydrocodone-Acetamin 5-325 mg) 1 Tab Tab, 1 TAB PO Q6H PRN for PAIN, #12 Hydrocodone/Acetaminophen (Hydrocodone-Acetamin 5-325 mg) 1 Each Tablet, 1-2 TAB PO Q4H PRN for PAIN, #30 Lorazepam (Ativan) 0.5 Mg Tab, 0.5 MG PO BIDP PRN for ANXIETY/AGITATION, (Reported) Miscellaneous Medications Potassium Chloride (Potassium Chloride) Unknown Strength Capsule.er, Unknown Dose PO, (Reported) RON WHITEHEAD DO Apr 10, 2019 17:37 TONY BRANDON MD Apr 11, 2019 13:10
[2019-04-10 17:58] VITALS: BP 129/66
[2019-04-10] MEDS: HYDROMORPHONE HCL 0.5 MG/ 0.5 ML SYRINGE (J1170 PER 1) IV PRN ×2 (18:00→21:17)
[2019-04-10 18:22] VITALS: BP 115/66
[2019-04-10] MEDS ORDERED: LORazepam 0.5 MG TAB PO PRN (19:00)
[2019-04-10] MEDS ORDERED: VITAMIN D 1,000 INTERNATIONAL UNITS TABLET PO SCH (19:00)
[2019-04-10] MEDS ORDERED: CYANOCOBALAMIN 500 MCG TAB PO SCH (19:00)
[2019-04-10] MEDS ORDERED: NICOTINE 14 MG/24 HR TRANSDERMAL TD PRN (19:00)
--- NOTE | 2019-04-10 19:05 | RO ---
DATE OF PROCEDURE: 04/10/2019 PREOPERATIVE DIAGNOSIS: Left knee osteoarthritis. POSTOPERATIVE DIAGNOSIS: Left knee osteoarthritis. PROCEDURE PERFORMED: Left total knee replacement, cemented, posterior stabilized rotating platform. SURGEON: Dr. Fortino Manley CLAY MAKER: Killian Wyatt, Physician Employee Relations Specialist ANESTHESIA: Spinal with block. ESTIMATED BLOOD LOSS: Less than 60 mL, replaced with crystalloid. No complications. COMPONENTS USED: Include DePuy Attune system, size 5 femoral component, size 5 tibial component, size 7 posterior stabilized rotating platform tibial component, size 35 mm polyethylene button, methylmethacrylate bone cement, tobramycin impregnated was also utilized to cement the prosthetic in place. INDICATIONS: Progressive discomfort in the knee, failure of conservative management, radiographic evidence of severe tricompartmental arthritis. The patient has elected for operative intervention. Consent reviewed in detail including a colton discussion of the pathology involved, the procedure proposed, alternatives including doing nothing, risks including but not limited to pain, failure, infection, bleeding, blood loss, need for more surgery, blood clots and other problems. The patient agrees to proceed. DESCRIPTION OF PROCEDURE: Identified in holding area, site and side verified, brought to the preoperative area, femoral block was administered by anesthesia, then brought to the operating room, spinal anesthesia administered, sterilely prepped, draped in usual fashion for exposure of the left knee for arthroplasty. Tourniquet was high on the thigh. We did utilize the tourniquet for this case. Tourniquet pressure was 250 mmHg. Tourniquet inflation time was 67 minutes. Once she was prepped and draped, a time-out was accomplished. I outlined the incision with a marking pen, infiltrated with 1% lidocaine with epinephrine, elevated the extremity, inflated the tourniquet, made the incision using a #10 blade knife, developed down through skin and subcuticular tissues. Mr. Wyatt utilized retractors to help expose. I developed the dissection to the extensor mechanism, entered it midline, medial parapatellar arthrotomy was accomplished, patella was everted. Infrapatellar fat pad was thinned. Medial release was accomplished using a sharp knife. The supracondylar soft tissue was cleared on the anterior femur to allow sizing. Patella was able to be everted, knee was flexed. The femoral canal was entered using the step drill, utilized suction to evacuate the canal, placed the distal femoral cutting guide in place, that was at 6 degrees alignment, guide was pinned, intramedullary device removed. First, the femoral cut was made by Mr. Wyatt, I secured the Hohmann retractors to protect the soft tissues. Once this was accomplished, pins removed. AP sizing guide applied, predicted a size 5, pins were placed. Four-in-one cutting block applied. Laz Wyatt secured Hohmann retractors to protect the soft tissue. I utilized the oscillating saw to make the anterior, posterior followed by the chamfer cuts, recut the anterior femur as per usual protocol. The guide was then removed. Next, we paid now attention to the tibial side. Extramedullary tibial alignment guide was applied, 3 degrees posterior slope, 4 mm off the bad side, medial side, with the stylus. It was pinned into place. Extramedullary jig was removed. The drop corbin was utilized to verify that we were in alignment with the ankle as well as the second ray and that slope was adequate. Next, I then applied the Hohmann retractors and posterior retractors, and I made the tibial cut using the oscillating saw. The tibial articular surface was then removed, then passed to the back table for measurement, size 5. Next, once this was accomplished, the lamina kit planner was utilized to expose the posterior aspect of the knee. I removed meniscus on the medial and lateral side, we palpated for any bone spurs, did not appreciate any bone spurs at the posterior condyle. Next, notch cutting guide was installed, pinned into place. Oscillating saw was utilized to make the femoral notch cut by myself and Mr. Wyatt, rasps were utilized to further contour the cut. Next, once this was accomplished, sizing blocks were utilized, size 7 spacer block predicted in both flexion as well as extension. Once this was accomplished, we installed the tibial template, size 5, rotating platform. It was pinned into place. The jig was installed. The large tibial drill was utilized to open the tibial canal, followed by the tibial broach, which was tamped into place. Next, we then placed the femoral trial and the tibial trial, placed the knee through a range of motion, patellar alignment and tracking appeared to be excellent. We placed the knee in the extended position. I made the posterior patella cut using the oscillating saw. Mr. Wyatt positioned retractors to secure the patellar. Next, once this was accomplished, we sized for a 35 mm patella button, using the template drilled for a 35 and placed the 35 trial. Again placed the knee through a range of motion, appeared to be stable, and the patella appeared to have excellent tracking. Next, once this was accomplished, all trial components were removed. I irrigated, including irrigation with TXA. Mr. Wyatt stepped to the back table to prepare bone cement. I instilled several mL of Exparel, Marcaine solution into the posterior capsule in the knee for perioperative pain management. We pulse lavaged and irrigated the bone surfaces, dried the bone surfaces. The cement was prepared. I cemented the tibial component into place. Excess cement removed with curettes. I applied cement to the posterior femoral condyles and then cemented the femoral component into place, tamped that into place. Excess cement removed the curettes. Non-trial rotating platform posterior stabilized polyethylene size 7 component was then installed with the tibia subluxed anteriorly. The knee was then placed in extension reducing that component. The knee was placed in extension over a bump. The patella was everted. The non-trial patella component was cemented into place, patella clamp was utilized. Excess cement cleared using curettes. Bone cement was allowed to harden. Pulse lavage was accomplished, additional TXA was placed in the knee and while that was allowed to stand, I instilled additional Exparel local anesthetic solution. Next, once the cement was the appropriate consistency, we then removed the clamp. We closed the knee with interrupted stitch and Stratafix on the extensor mechanism, followed by interrupted stitch both deep and on the dermis, and then applied a Prineo dressing. The tourniquet was deflated prior to skin closure at about 67 minutes. Next, once this was accomplished, the patient was able to be moved to the recovery room in good condition and was conversant. Mr. Wyatt was present and participated in the entirety of the case.
[2019-04-10 19:39] VITALS: BP 118/79
[2019-04-10] MEDS: NORCO, ANEXSIA 5/325MG TABLET (HYDROcodone/ACETAMINOPHEN) PO PRN (19:50)
[2019-04-10] MEDS: CitaloPRAM (CeleXA) 20 MG TAB PO SCH (21:16)
[2019-04-10] MEDS: DOCUSATE SODIUM 100 MG CAP PO SCH (21:17)
[2019-04-10] MEDS: FAMOTIDINE 20 MG TAB PO SCH (21:32)
[2019-04-10] MEDS: ceFAZolin SOD 2 GM in IV 1 EA IV SCH (22:10)
[2019-04-10 22:54] VITALS: BP 128/76
[2019-04-11 02:16] VITALS: BP 135/75
[2019-04-11] MEDS ORDERED: traMADol 50 MG TAB PO PRN ×2 (06:15)
[2019-04-11] MEDS: NORCO, ANEXSIA 5/325MG TABLET (HYDROcodone/ACETAMINOPHEN) PO PRN ×2 (06:22→10:24)
[2019-04-11] MEDS: ceFAZolin SOD 2 GM in IV 1 EA IV SCH (06:22)
[2019-04-11 06:40] VITALS: BP 141/72
[2019-04-11 08:11] LABS: HEMATOCRIT 34.2 % (36.0-47.0); MEAN CORPUSCULAR HEMOGLOBIN 29.6 pg (27.0-33.0); MEAN CORPUSCULAR HGB CONC 32.2 g/dl (32.0-36.5); MEAN CORPUSCULAR VOLUME 92.2 fl (80.0-96.0); PLATELET COUNT, AUTOMATED 239 10^3/uL (150-450); RED BLOOD COUNT 3.71 10^6/uL (4.00-5.40); WHITE BLOOD COUNT 24.1 10^3/uL (4.0-10.0)
[2019-04-11 08:36] LABS: CREATININE FOR GFR 1.48 MG/DL (0.55-1.30); GLOMERULAR FILTRATION RATE 37.8 (>45); POTASSIUM SERUM 4.6 MEQ/L (3.5-5.1)
[2019-04-11] MEDS: DOCUSATE SODIUM 100 MG CAP PO SCH (08:40)
[2019-04-11] MEDS: CitaloPRAM (CeleXA) 20 MG TAB PO SCH (08:41)
[2019-04-11] MEDS: FAMOTIDINE 20 MG TAB PO SCH (08:42)
[2019-04-11] MEDS ORDERED: MOM 30ML SUSPENSION UDC PO SCH (09:00)
[2019-04-11] MEDS ORDERED: MIRALAX *UNIT DOSE* 17GM PACKET PO SCH (09:00)
[2019-04-11] MEDS ORDERED: TOPIRAMATE (TopAMAX) 25 MG TAB PO SCH (09:00)
[2019-04-11] MEDS ORDERED: SENOKOT S TAB PO SCH (09:00)
[2019-04-11] MEDS ORDERED: CYANOCOBALAMIN 500 MCG TAB PO SCH (09:00)
[2019-04-11] MEDS ORDERED: VITAMIN D 1,000 INTERNATIONAL UNITS TABLET PO SCH (09:00)
[2019-04-11] MEDS ORDERED: HYDR-3713 PO (09:03)
[2019-04-11] MEDS ORDERED: XARE10TA PO (09:05)
[2019-04-11 09:27] LABS: INR 1.06; PROTHROMBIN TIME 13.5 SECONDS (11.8-14.0)
[2019-04-11 11:03] VITALS: BP 141/56
[2019-04-11] MEDS ORDERED: RIVAROXABAN 10 MG TAB (XARELTO) PO SCH (18:00)
[2019-04-11] MEDS ORDERED: DULoxetine 30 MG CAP (CYMBALTA) PO SCH (21:00)
[2019-04-12] MEDS ORDERED: FLUBLOK(EGG FREE)(QUAD)INFLUENZA VACC 0.5ML SYRINGE (90682)18YRS&OLDER IM ONE (09:00)
--- NOTE | 2019-04-14 15:14 | DSES ---
DATE OF ADMISSION: 04/10/2019 DATE OF DISCHARGE: 04/11/2019 ATTENDING PHYSICIAN: Dr. Fortino Manley ADMISSION DIAGNOSIS: Left knee osteoarthritis. OTHER DIAGNOSES: Hypertension. Depression. Obesity. Impaired fasting glucose. Gastroesophageal reflux disease. Fatty liver. Hyperlipidemia. Migraines. Peripheral edema. Nicotine addiction. Osteopenia. Insomnia. DISCHARGE DIAGNOSIS: Left knee osteoarthritis status post left total knee arthroplasty. HISTORY: The patient is a 63-year-old female with progressively worsening left knee pain and stiffness. She failed to improve with conservative measures. She continued to have symptoms with weightbearing activities and activities of daily living. She consented for an elective left total knee arthroplasty with Dr. Manley for her continued symptoms. OPERATION PERFORMED: Left total knee arthroplasty. HOSPITAL COURSE: The patient underwent a left total knee arthroplasty under spinal anesthesia with femoral nerve block. Surgery was uneventful and her hospital course was without complication. She was up with physical therapy per their protocol, weightbearing as tolerated on the left lower extremity. The patient was discharged on oral pain medications and will resume her preoperative medications and diet. She will use her thromboembolic deterrent stockings and take her anticoagulant postoperatively to prevent deep venous thrombosis. The patient will followup in our office in 12-14 days for wound check and reevaluation. She is encouraged to contact our office sooner if there is any increase in pain, redness, drainage, swelling, numbness or tingling in the extremity, fever greater than 101 degrees or any other concerns. Please see medical records for additional details.
== END 2019-04-11 13:55 | disposition home or self-care (01) | DRG 470 ==
LOC: M OR 10:11 → M MS5PR 16:40
PROVIDERS: ADMIT Orthopaedic Surgery; ATTEND Orthopaedic Surgery
PROC: 0SRD0J9 Replacement of Left Knee Joint with Synthetic Substitute, Cemented, Open Approach (ICD-10-PCS; principal; 2019-04-10 12:00)
DX: M17.12 Unilateral primary osteoarthritis, left knee (principal); Z79.899 Other long term (current) drug therapy; I12.9 Hypertensive chronic kidney disease with stage 1 through stage 4 chronic kidney disease, or unspecified chronic kidney disease; F17.200 Nicotine dependence, unspecified, uncomplicated; E66.9 Obesity, unspecified; G47.00 Insomnia, unspecified; M54.5 Low back pain; K21.9 Gastro-esophageal reflux disease without esophagitis; G43.909 Migraine, unspecified, not intractable, without status migrainosus; F32.9 Major depressive disorder, single episode, unspecified; K76.0 Fatty (change of) liver, not elsewhere classified; Z95.2 Presence of prosthetic heart valve; E78.5 Hyperlipidemia, unspecified; F41.9 Anxiety disorder, unspecified; I25.10 Atherosclerotic heart disease of native coronary artery without angina pectoris; N18.3 Chronic kidney disease, stage 3 (moderate)

== ENCOUNTER → 2019-07-09 | Outpatient (REF) | payer MEDICARE, OTHER ==
[~2019-07-09] MED LIST changes: -ACETAMINOPHEN 500 MG TAB PO ONE; +HYDR-3713 PO; -LIDOCAINE 1% MDV 20ML VIAL SQ PRN; -LR 1,000 ML IV ONE; -PREGABALIN 75 MG CAP(LYRICA) PO ONE; -RANI-356 PO; +RANI-397 PO; +XARE10TA PO; -ceFAZolin SOD 1 GM in D5W MINI-BAG PLUS 50 ML IV ONE; -ceFAZolin SOD 2 GM in IV 1 EA IV ONE; -fentaNYL 100 MCG/2 ML INJECTION (J3010) IV SCH
[2019-07-09 13:29] LABS: ALBUMIN 3.8 GM/DL (3.2-5.2); BILIRUBIN,TOTAL 0.3 MG/DL (0.2-1.0); CALCIUM LEVEL 8.8 MG/DL (8.8-10.2); CHOLESTEROL RISK RATIO 4.833 (<5); CREATININE FOR GFR 1.54 MG/DL (0.55-1.30); POTASSIUM SERUM 4.9 MEQ/L (3.5-5.1); TOTAL 25(OH) VITAMIN D 84.6 NG/ML (30.0-100.0); TOTAL PROTEIN 6.9 GM/DL (6.4-8.2)
[2019-07-09 13:51] LABS: HEMOGLOBIN A1c 5.5 %
== END ==
LOC: M SFHCCLAY 09:36
PROVIDERS: ATTEND Nurse Practitioner Family
DX: I10 Essential (primary) hypertension (principal); R73.01 Impaired fasting glucose; E78.49 Other hyperlipidemia; E55.9 Vitamin D deficiency, unspecified; Z79.899 Other long term (current) drug therapy

== ENCOUNTER → 2019-11-24 | Outpatient (REF) | payer MEDICARE, OTHER ==
[2019-11-24 12:51] LABS: ALBUMIN 3.7 GM/DL (3.2-5.2); BILIRUBIN,TOTAL 0.3 MG/DL (0.2-1.0); CHOLESTEROL RISK RATIO 3.072 (<5); CREATININE FOR GFR 1.38 MG/DL (0.55-1.30); GLOMERULAR FILTRATION RATE 40.8 (>45); POTASSIUM SERUM 4.6 MEQ/L (3.5-5.1); TOTAL 25(OH) VITAMIN D 72.6 NG/ML (30.0-100.0); TOTAL PROTEIN 6.9 GM/DL (6.4-8.2)
== END ==
LOC: M SFHCCLAY 08:23
PROVIDERS: ATTEND Nurse Practitioner Family
DX: E78.5 Hyperlipidemia, unspecified (principal); E55.9 Vitamin D deficiency, unspecified

== ENCOUNTER → 2020-01-23 | Emergency (ER) | payer MEDICARE, OTHER ==
[~2020-01-23] MED LIST changes: -ASPI81TA85 PO; +ASPI81TA86 PO; +COQ1200C3 PO; +D31000TA2 PO; -DYMI137S; +DYMI137S NARES; +MIRA3350 PO; +POTA1TAB14 PO; +PRIL20TA2 PO; +ROSU10TA6 PO
== END | disposition left against medical advice (07) ==
LOC: M ED 18:10
DX: Z53.21 Procedure and treatment not carried out due to patient leaving prior to being seen by health care provider (principal)

== ENCOUNTER → 2020-01-24 11:35 | Emergency (ER) | payer MEDICARE, OTHER ==
[~2020-01-24 11:35] MED LIST changes: -COQ1200C3 PO; +DYMI137S; -DYMI137S NARES; -ROSU10TA6 PO
== END | disposition home or self-care (01) ==
LOC: M ED 11:35
DX: S80.11XA Contusion of right lower leg, initial encounter (principal); W19.XXXA Unspecified fall, initial encounter; Y92.89 Other specified places as the place of occurrence of the external cause; I10 Essential (primary) hypertension; I25.2 Old myocardial infarction; E78.5 Hyperlipidemia, unspecified; F31.9 Bipolar disorder, unspecified; Z95.5 Presence of coronary angioplasty implant and graft; Z79.899 Other long term (current) drug therapy; Z79.82 Long term (current) use of aspirin; F17.210 Nicotine dependence, cigarettes, uncomplicated

== ENCOUNTER → 2020-04-12 | Outpatient (CLI) | payer MEDICARE, OTHER ==
[~2020-04-12] MED LIST changes: +COQ1200C3 PO; -DYMI137S; +DYMI137S NARES; +ROSU10TA6 PO
--- NOTE | 2020-04-12 10:26 | REP ---
INDICATION: PREOP, RT KNEE OA COMPARISON: 03/19/2019 TECHNIQUE: PA and lateral. FINDINGS: The mediastinum and cardiac silhouette are normal. The lung bah are clear and without acute consolidation, effusion, or pneumothorax. The skeletal structures are intact and normal. IMPRESSION: No acute cardiopulmonary process. <Electronically signed by Bjorn Coronel > 04/12/20 1025
[2020-04-12 11:41] LABS: HEMATOCRIT 43.1 % (36.0-47.0); HEMOGLOBIN 13.8 g/dl (12.0-15.5); MEAN CORPUSCULAR HEMOGLOBIN 28.9 pg (27.0-33.0); MEAN CORPUSCULAR VOLUME 90.2 fl (80.0-96.0); PLATELET COUNT, AUTOMATED 275 10^3/uL (150-450); RED BLOOD COUNT 4.78 10^6/uL (4.00-5.40); WHITE BLOOD COUNT 10.1 10^3/uL (4.0-10.0)
[2020-04-12 11:53] LABS: INR 1.03; PROTHROMBIN TIME 13.7 SECONDS (12.5-14.3)
[2020-04-12 12:16] LABS: ALBUMIN 3.7 GM/DL (3.2-5.2); BILIRUBIN,TOTAL 0.3 MG/DL (0.2-1.0); CALCIUM LEVEL 8.8 MG/DL (8.8-10.2); CREATININE FOR GFR 1.39 MG/DL (0.55-1.30); GLOMERULAR FILTRATION RATE 40.5 (>45); POTASSIUM SERUM 4.4 MEQ/L (3.5-5.1); TOTAL PROTEIN 6.9 GM/DL (6.4-8.2)
[2020-04-12 12:52] LABS: ERYTHROCYTE SEDIMENTATION RATE 8 mm/hr (0-30)
== END ==
LOC: M LAB 09:49
PROVIDERS: ATTEND Orthopaedic Surgery
DX: Z01.818 Encounter for other preprocedural examination (principal); M17.11 Unilateral primary osteoarthritis, right knee

== ENCOUNTER → 2020-04-21 | Outpatient (CLI) | payer MEDICARE, OTHER, SELFPAY | LOC: M LABSMTC 12:09 | PROVIDERS: ATTEND Anesthesiology | DX: Z01.812 Encounter for preprocedural laboratory examination (principal); Z20.828 Contact with and (suspected) exposure to other viral communicable diseases | CPT/HCPCS: C9803; U0003 ==

== ENCOUNTER 2020-04-26 07:17 | Inpatient (IN) | payer MEDICARE, OTHER ==
--- NOTE | 2020-04-23 06:54 | HPE ---
DATE OF ANTICIPATED ADMISSION: 04/26/2020 ATTENDING PHYSICIAN: Fortino Manley M.D. CHIEF COMPLAINT: Right knee pain and stiffness. HISTORY OF PRESENT ILLNESS: Patient is a 64-year-old female with progressively worsening right knee pain and stiffness. She failed to improve with conservative measures. She continues to have symptoms with weightbearing activities and activities of daily living. She has consented for an elective right total knee arthroplasty for her continued symptoms. Medical optimization pending with Dr. Davis. CURRENT MEDICATIONS: * Carvedilol 12.5 mg twice daily. * Calcium 600 mg twice daily. * Claritin daily as needed. * Aspirin 81 mg daily. * Azelastine 137 mcg as needed twice daily. * Topamax 25 mg daily. * Celexa 40 mg daily. * Cymbalta 30 mg daily. * Zantac 150 mg twice daily. * Fosamax 70 mg weekly. * Vitamin D 2000 units twice daily. * Lasix 40 mg daily. * Ambien 10 mg at bedtime. * Lorazepam 0.5 mg daily. * Potassium 10 mg daily. ALLERGIES: PERCOCET. CHRONIC MEDICAL CONDITIONS: 1. Hypertension. 2. Osteopenia. 3. Depression. 4. Obesity. 5. Insomnia. 6. Impaired fasting glucose. 7. Hyperlipidemia. 8. Fatty liver. 9. Migraines. 10. Gastroesophageal reflux disease. 11. Peripheral edema. 12. Chronic back pain. PAST SURGICAL HISTORY: 1. Total hysterectomy. 2. Left eye surgery. 3. Lumbar spine surgery. 4. Tooth extraction. 5. Cataract surgery bilaterally. 6. Three cardiac stents. 7. Sinus surgery. 8. Valve repair. 9. Left total knee arthroplasty. SOCIAL HISTORY: Patient is continuing to smoke and occasionally uses alcohol. REVIEW OF SYSTEMS: Patient denies fevers, chills, nausea, vomiting or diarrhea. Denies chest pain, shortness of breath, lightheadedness, dizziness or headaches. Denies any recent upper respiratory or urinary tract infection symptoms. Patient continues to have right knee pain with weightbearing activities and activities of daily living. PHYSICAL EXAMINATION: General: Well-nourished, well-developed female in no apparent distress. She is alert, oriented and cooperative. Mood and affect are appropriate. Vital signs: Height 62.5 inches, weight 196.4 pounds, temperature 97.7, blood pressure 130/68, heart rate 70, respirations 12. Neck: Supple without lymphadenopathy. Heart: Regular rate and rhythm. Lungs: Clear to auscultation bilaterally. Breathing is regular and non-labored. Abdomen: Soft and nontender. Bowel sounds are present. Musculoskeletal: Right knee exhibits no gross abnormalities. Skin is intact. She does have tenderness along the medial and lateral joint lines. Patient can extend knee fully and flex to 110 degrees. Right lower extremity strength is 5/5. No hip irritability elicited with range of motion testing. Patient's calf is soft and nontender without evidence of DVT. She is neurovascularly intact distally. RADIOLOGY STUDIES: Chest x-ray: No acute cardiopulmonary process. Right knee x- ray notable for end-stage degenerative changes. LABORATORY DATA: Comprehensive metabolic profile: Fasting glucose 79, BUN elevated at 21, creatinine elevated at 1.39, GFR decreased at 40.5, sodium 140, potassium 4.4, chloride 105, carbon dioxide 29, anion gap decreased at 6, calcium 8.8. AST 9, ALT 12, alkaline phosphatase 99, total bilirubin 0.3, total protein 6.9, albumin 3.7, albumin-globulin ratio 1.2. Complete blood count: ESR 8, WBC is elevated at 10.1, RBC 4.78, hemoglobin 13.8, hematocrit 43.1, platelets 275. Prothrombin time 13.7, INR 1.03. IMPRESSION: Right knee osteoarthritis with x-rays notable for end-stage degenerative changes. PLAN: Patient has consented for an elective right total knee arthroplasty with Dr. Manley for her continued symptoms. Medical optimization pending with Dr. Davis. Patient will be n.p.o. after midnight the night prior to surgery unless instructed to take any medications with a small sip of water by her primary certified caregiver. Otherwise she will follow all of her primary care managers recommendations for how to take her daily medications and anticoagulants if applicable. Patient will start using her Hibiclens and Bactroban today. She will call [facility] this Sunday afternoon for a report time on Sunday for her surgery. CASIE
[2020-04-26] VITALS (7 sets, daily range): BP systolic 132–162; BP diastolic 76–89
[~2020-04-26] VITALS: Ht 157.5 cm; Wt 90.2 kg
[~2020-04-26 07:17] MED LIST changes: -COQ1200C3 PO; +LR 1,000 ML IV ONE; +NORCO, ANEXSIA 5/325MG TABLET (HYDROcodone/ACETAMINOPHEN) PO ONE; +PREGABALIN 75 MG CAP(LYRICA) PO ONE; -ROSU10TA6 PO; +ceFAZolin SOD 1 GM in D5W MINI-BAG PLUS 50 ML IV ONE; +ceFAZolin SOD 2 GM in IV 1 EA IV ONE
[2020-04-26] MEDS ORDERED: MIDAZOLAM INJ 2MG/2ML VIAL (J2250 PER 1MG) As Ordered ONE ×2 (08:47→11:07)
[2020-04-26] MEDS ORDERED: fentaNYL 100 MCG/2 ML INJECTION (J3010) As Ordered ONE ×2 (08:47→11:05)
[2020-04-26] MEDS: MIDAZOLAM INJ 2MG/2ML VIAL (J2250 PER 1MG) IV PRN ×2 (09:10→09:13)
[2020-04-26] MEDS ORDERED: fentaNYL 100 MCG/2 ML INJECTION (J3010) IV PRN ×2 (10:00→13:00)
[2020-04-26] MEDS ORDERED: BUPIVACAINE HCL 0.5% 10ML VIAL As Ordered ONE (10:14)
[2020-04-26] MEDS ORDERED: TRANEXAMIC ACID 100 MG/ML 10ML VIAL As Ordered ONE (10:14)
[2020-04-26] MEDS ORDERED: BUPIVACAINE/EPIN 0.5% 30 ML VIAL As Ordered ONE (10:14)
[2020-04-26] MEDS ORDERED: EPINEPHrine INJ 1 MG/ML 1ML AMP As Ordered ONE (10:15)
[2020-04-26] MEDS ORDERED: BUPIVACAINE LIPOSOME/PF 1.3% 20ML VIAL (13.3MG/ML)(EXPAREL)(C9290 PER1MG) As Ordered ONE (10:15)
[2020-04-26] MEDS ORDERED: ceFAZolin 1GM VIAL (J0690 PER 500MG) As Ordered ONE (10:15)
[2020-04-26] MEDS ORDERED: ROPIvacaine 0.5% 30ML INJECTION (J2795 PER 1MG) ONE (10:42)
[2020-04-26] MEDS ORDERED: dexameTHASONE 10MG/1ML VIAL PRES.FREE (J1100 PER 1MG) ONE (10:42)
[2020-04-26] MEDS ORDERED: LIDOCAINE 2% MDV 20ML VIAL ONE (10:42)
[2020-04-26] MEDS ORDERED: propofoL 200 MG/20 ML VIAL As Ordered ONE (11:05)
[2020-04-26] MEDS ORDERED: ePHEDrine SULFATE 25 MG/5 ML(5MG/ML) SYRINGE As Ordered ONE (11:07)
[2020-04-26] MEDS ORDERED: PHENYLephrine HCL 500 MCG/5 ML (100MCG/ML) SYRINGE (J2370) As Ordered ONE (11:15)
--- NOTE | 2020-04-26 12:56 | REP ---
INDICATION: PLACEMENT. COMPARISON: None. TECHNIQUE: Portably obtained AP and lateral radiographs of the right knee in the recovery room. FINDINGS: AP and lateral views of the right knee demonstrate right knee arthroplasty components in good position. There is intra-articular and periarticular soft tissue emphysema. There is diffuse osteopenia. There are 2 areas of cortical disruption along the posterior cortex of the distal femur on the lateral radiograph which could be fracture lines. No other abnormality.. . . IMPRESSION: Status post right knee arthroplasty. Cortical discontinuity along the distal femur on the lateral radiograph question fracture lines.. <Electronically signed by Nabor Clarke > 04/26/20 1256
[2020-04-26] MEDS ORDERED: LR 1,000 ML IV SCH ×2 (13:00→13:15)
[2020-04-26] MEDS ORDERED: MORPHINE 2 MG/ML 1ML VIAL (J2270) IV PRN (13:00)
[2020-04-26] MEDS ORDERED: ONDANSETRON 4MG/2ML VIAL IV PRN ×2 (13:00→13:15)
[2020-04-26] MEDS ORDERED: PERCOCET 5MG/325MG TAB PO PRN ×3 (13:15)
[2020-04-26] MEDS ORDERED: PROMETHAZINE INJ 25 MG/ML VIAL (J2550) IV PRN (13:15)
[2020-04-26] MEDS ORDERED: HYDROMORPHONE HCL 0.5 MG/ 0.5 ML SYRINGE (J1170 PER 1) IV PRN ×2 (13:15)
[2020-04-26] MEDS ORDERED: LORazepam 0.5 MG TAB PO PRN (14:00)
[2020-04-26] MEDS ORDERED: MIRALAX *UNIT DOSE* 17GM PACKET PO PRN (14:00)
[2020-04-26] MEDS ORDERED: TRAM50TA2 PO (14:50)
[2020-04-26] MEDS ORDERED: COQ1200C3 PO (14:50)
[2020-04-26] MEDS ORDERED: ROSU10TA6 PO (14:50)
[2020-04-26] MEDS: POTASSIUM CHLORIDE 10 MEQ SR TABLET PO SCH (16:00)
[2020-04-26] MEDS: FUROSEMIDE 20 MG TAB PO SCH (16:00)
[2020-04-26] MEDS: PERCOCET 5MG/325MG TAB PO PRN ×2 (16:04→20:36)
[2020-04-26] MEDS: ceFAZolin SOD 2 GM in IV 1 EA IV SCH (18:14)
--- NOTE | 2020-04-26 19:38 | HPEPDOC ---
[facility] Medical History & Physical Date of Admission Apr 26, 2020 Date of Service: Apr 26, 2020 History and Physical Internal Medicine Consult Note Date of Consultation: 04/26/2020 Reason for Consultation: Management of chronic medical issues Referring Provider: Dr. Fortino Manley MD PCP: Dr. Chapito Davis MD HISTORY OF PRESENT ILLNESS: Patient had elective right total knee arthroplasty earlier today. Besides knee pain, she does not have any acute complaints at this time. She is in very good spirits. The entire rest of the review of systems is negative. ALLERGIES: Has an adverse reaction oxycodone PAST MEDICAL HISTORY: Hypertension Osteopenia Depression Obesity Insomnia and nightmares Impaired fasting glucose Hyperlipidemia Fatty liver Migraines Gastroesophageal reflux disease Peripheral edema Chronic back pain PAST SURGICAL HISTORY: Total hysterectomy Left eye surgery Lumbar spine surgery Tooth extraction Cataract surgery bilaterally 3 cardiac stents Sinus surgery Valve repair Left total knee arthroplasty SOCIAL HISTORY: Current smoker. Occasionally drinks alcohol FAMILY HISTORY: Noncontributory REVIEW OF SYSTEMS: Constitutional: Patient denies fevers, chills, night sweats, recent weight gain/loss. HEENT: Patient denies blurred or double vision, transient visual disturbances, postnasal drip, epistaxis, sore throat, difficulty chewing or swallowing food. Cardiovascular: Patient denies chest discomfort/pain, palpitations, exertional dyspnea, orthopnea, edema of the extremities, claudication. Respiratory: Patient denies dyspnea, wheezing, cough, hemoptysis, sputum production. Gastrointestinal: Patient denies nausea, vomiting, diarrhea, constipation, abdominal pain, melena, hematochezia, hematemesis, jaundice. Endocrine: Patient denies polyuria, polydipsia, polyphagia. PHYSICAL EXAMINATION: General: Awake, alert, oriented 3. She is in no acute distress. She is sitting upright in bed. HEENT: Head normocephalic atraumatic, conjunctiva are pink, sclera are nonicteric, buccal mucosa is pink and moist with no lesions in the oropharynx. Hearing is grossly intact to conversation. Respiratory: Clear to auscultation bilaterally with no wheezes, rales, or rhonchi. Cardiovascular: Regular rate and rhythm, with no rubs, gallops, or murmur. Abdomen: Soft, nontender, nondistended, no hepatosplenomegaly appreciated. Bowel sounds present. Extremities: 2+ pulses in the radial and dorsalis pedis bilaterally. No evidence of clubbing or cyanosis. Right knee bandaged. ASSESSMENT/PLAN: Right total knee arthroplasty - Management per orthopedic team Hypertension - Will resume home dose of carvedilol, furosemide, and also will resume home dose of potassium supplementation Osteopenia - She takes alendronate on a weekly basis, she can resume this after discharge Depression - Continue home dose of duloxetine, Celexa Obesity - Complicating care Insomnia and nightmares - Continue home dose of Ambien, lorazepam Hyperlipidemia - While it would be safe to reinstate her home dose of rosuvastatin, the patient would prefer not to take it tonight as it can cause her myalgias on occasion. She may resume this when she gets home after discharge. Migraines - Continue home dose of topiramate Gastroesophageal reflux disease - Continue home dose of omeprazole Thank you for your kind consultation. Vital Signs Vital Signs Date Time Temp Pulse Resp B/P (MAP) Pulse Ox O2 Delivery O2 Flow Rate FiO2 04/26/20 18:00 98.0 77 20 162/86 (111) 93 Room Air 04/26/20 10:28 3 Home Medications Scheduled Alendronate Sodium (Fosamax) 70 Mg Tab, 70 MG PO QWEEK Sunday Ascorbate Calcium (Vitamin C) 500 Mg Tablet, 500 MG PO DAILY Azelastine/Fluticasone (Dymista Nasal Elkins) 23 Gm Elkins.pump, 2 SPR NARES BID Calcium Carbonate/Vitamin D3 (Calcium 600-Vit D3 400 Tablet) 1 Each Tablet, 1 TAB PO BID Carvedilol (Carvedilol) 25 Mg Tablet, 25 MG PO BID Cholecalciferol (Vitamin D3) (Vitamin D3) 1,000 Unit Tablet, 2,000 UNITS PO DAILY Citalopram Hydrobromide (Celexa) 40 Mg Tab, 40 MG PO BID Cyanocobalamin (Vitamin B-12) (Vitamin B-12) 500 Mcg Tab, 1,000 UNITS PO DAILY Docusate Sodium (Colace) 100 Mg Capsule, 100 MG PO BID Duloxetine Hcl (Duloxetine HCl) 30 Mg Cap, 30 MG PO QHS Furosemide (Furosemide) 20 Mg Tab, 20 MG PO DAILY Loratadine/Pseudoephedrine (Claritin-D 24 Hour Tablet) 1 Tab Tab, 1 TAB PO DAILY Multivitamin (Multivitamins) 1 Each Capsule, 1 CAP PO DAILY Omeprazole Magnesium (Prilosec Otc) 20 Mg Tablet.dr, 20 MG PO DAILY Potassium Chloride (Potassium Chloride) 20 Meq Tablet.er, 20 MEQ PO DAILY Rosuvastatin Calcium (Rosuvastatin Calcium) 10 Mg Tablet, 10 MG PO QHS Topiramate (Topiramate) 25 Mg Tab, 25 MG PO DAILY Ubidecarenone (Co Q10) 200 Mg Capsule, 200 MG PO QHS Zolpidem Tartrate (Ambien) 10 Mg Tab, 10 MG PO QHS Scheduled PRN Lorazepam (Ativan) 0.5 Mg Tab, 0.5 MG PO QHS PRN for ANXIETY/AGITATION Polyethylene Glycol 3350 (Miralax) 119 Gm Powder, 17 GM PO Q2D PRN for CONSTIPATION MIX WITH 8 OUNCES OF WATER OR JUICE Tramadol HCl (Tramadol HCl) 50 Mg Tablet, 50 MG PO Q6H PRN for PAIN Allergies Coded Allergies: oxycodone (Verified Adverse Reaction, Mild, HALLUCINATIONS, 04/21/20) A-FIB/CHADSVASC A-FIB History Current/History of A-Fib/PAF?: No JESSI MCLAUGHLIN DO Apr 26, 2020 19:37
[2020-04-26] MEDS: LORazepam 0.5 MG TAB PO SCH (20:35)
[2020-04-26] MEDS: DULoxetine 30 MG CAP (CYMBALTA) PO SCH (20:35)
[2020-04-26] MEDS: DOCUSATE SODIUM 100 MG CAP PO SCH (20:35)
[2020-04-26] MEDS: CitaloPRAM (CeleXA) 20 MG TAB PO SCH (20:35)
[2020-04-26] MEDS: CARVedilol 12.5 MG TAB PO SCH (20:42)
[2020-04-26] MEDS ORDERED: ROSUVASTATIN 10 MG TAB (CRESTOR) PO SCH (21:00)
[2020-04-26] MEDS: zolPIDEM TARTRATE 5 MG TAB PO SCH (22:28)
[2020-04-27 02:00] VITALS: BP 147/84
[2020-04-27] MEDS: PERCOCET 5MG/325MG TAB PO PRN ×5 (02:42→23:25)
[2020-04-27] MEDS: ceFAZolin SOD 2 GM in IV 1 EA IV SCH (02:42)
[2020-04-27] MEDS: ACETAMINOPHEN TAB 650MG DOSE (2X325MG) PO PRN ×2 (05:43→20:33)
[2020-04-27 06:00] VITALS: BP 167/72
[2020-04-27] MEDS ORDERED: PERC5TAB12 PO (06:16)
[2020-04-27] MEDS ORDERED: XARE10TA PO (06:16)
[2020-04-27] MEDS: CitaloPRAM (CeleXA) 20 MG TAB PO SCH ×2 (08:44→20:27)
[2020-04-27] MEDS: TOPIRAMATE (TopAMAX) 25 MG TAB PO SCH (08:45)
[2020-04-27] MEDS: DOCUSATE SODIUM 100 MG CAP PO SCH ×2 (08:45→20:28)
[2020-04-27] MEDS: POTASSIUM CHLORIDE 10 MEQ SR TABLET PO SCH (08:45)
[2020-04-27] MEDS: FUROSEMIDE 20 MG TAB PO SCH (08:45)
[2020-04-27] MEDS: OMEPRAZOLE 20 MG CAP PO SCH (08:46)
[2020-04-27] MEDS: CARVedilol 12.5 MG TAB PO SCH ×2 (08:50→20:27)
[2020-04-27 10:00] VITALS: BP 147/84
--- NOTE | 2020-04-27 11:04 | IPNPDOC ---
Text Note Date of Service The patient was seen on 04/27/20. NOTE Subjective: Patient was seen and examined at the bedside. Patient reports that they do not experience any chest pain, shortness breath, palpitations, nausea, vomiting, abdominal pain. They have passed gas have been out of bed ambulating. Patient r eports that the right knee has experienced some bleeding. Objective: Vitals (See below) General: Lying in bed, appears comfortable, AAOx3 HEENT: NC, AT CVS: RRR, +S1S2 Lungs: Fair air entry b/l, no appreciable wheezing, rhonchi or rales Abdomen: Soft, nondistended and nontender Extremities: No appreciable edema, - Calf tenderness Assessment and plan: Elective total right total knee arthroplasty (POD#1) - Presented to [facility] for an elective orthopedic procedure - As received outpatient medical clearance from her primary care provider - Pain control, anticoagulation and physical therapy at the direction of primary orthopedic team Hypertension - c/w carvedilol, furosemide with hold parameters Osteopenia - c/w Alendronate on discharge Depression - c/w duloxetine, Celexa Obesity - BMI of 36.4 - Complicating medical care Insomnia and nightmares - c/w Ambien, lorazepam Hyperlipidemia - Will c/w Rosuvastatin on discharge Migraines - c/w topiramate GERD - c/w Omeprazole DVT prophylaxis - As per orthopedic surgery Disposition: - Anticipate discharge tomorrow VS,Fishbone, I+O VS, Fishbone, I+O Vital Signs Date Time Temp Pulse Resp B/P (MAP) Pulse Ox O2 Delivery O2 Flow Rate FiO2 04/27/20 10:00 97.8 85 19 147/84 (105) 95 Room Air 04/26/20 10:28 3 I&O- Last 24 Hours up to 6 AM 04/27/20 06:00 Intake Total 4460 ml Output Total 675 ml Balance 3785 ml ELIEL LEVY MD Apr 27, 2020 11:04
[2020-04-27 14:00] VITALS: BP 147/86
[2020-04-27] MEDS ORDERED: MAALOX 30 ML SUSP *UDC PO ONE (17:15)
[2020-04-27 17:34] LABS: HEMATOCRIT 34.5 % (36.0-47.0); HEMOGLOBIN 11.1 g/dl (12.0-15.5); MEAN CORPUSCULAR HEMOGLOBIN 29.1 pg (27.0-33.0); MEAN CORPUSCULAR HGB CONC 32.2 g/dl (32.0-36.5); MEAN CORPUSCULAR VOLUME 90.6 fl (80.0-96.0); PLATELET COUNT, AUTOMATED 270 10^3/uL (150-450); RED BLOOD COUNT 3.81 10^6/uL (4.00-5.40)
[2020-04-27] MEDS ORDERED: RIVAROXABAN 10 MG TAB (XARELTO) PO SCH (18:00)
[2020-04-27 18:30] LABS: CALCIUM LEVEL 8.5 MG/DL (8.8-10.2); CREATININE FOR GFR 1.48 MG/DL (0.55-1.30); GLOMERULAR FILTRATION RATE 37.7 (>45); POTASSIUM SERUM 4.1 MEQ/L (3.5-5.1)
[2020-04-27] MEDS: DULoxetine 30 MG CAP (CYMBALTA) PO SCH (20:26)
[2020-04-27] MEDS: LORazepam 0.5 MG TAB PO SCH (20:26)
[2020-04-27] MEDS: zolPIDEM TARTRATE 5 MG TAB PO SCH (20:26)
[2020-04-27 22:00] VITALS: BP 167/90
[2020-04-28] MEDS: PERCOCET 5MG/325MG TAB PO PRN (03:23)
[2020-04-28] MEDS ORDERED: TRAM50TA2 PO (05:52)
[2020-04-28 06:00] VITALS: BP 170/83
[2020-04-28] MEDS ORDERED: traMADol 50 MG TAB PO PRN (06:00)
[2020-04-28 06:01] LABS: HEMATOCRIT 31.5 % (36.0-47.0); HEMOGLOBIN 10.1 g/dl (12.0-15.5); MEAN CORPUSCULAR HEMOGLOBIN 28.9 pg (27.0-33.0); MEAN CORPUSCULAR HGB CONC 32.1 g/dl (32.0-36.5); MEAN CORPUSCULAR VOLUME 90.3 fl (80.0-96.0); PLATELET COUNT, AUTOMATED 243 10^3/uL (150-450); RED BLOOD COUNT 3.49 10^6/uL (4.00-5.40); WHITE BLOOD COUNT 17.9 10^3/uL (4.0-10.0)
[2020-04-28] MEDS: traMADol 50 MG TAB PO PRN ×3 (06:08→18:28)
[2020-04-28] MEDS: ACETAMINOPHEN 500 MG TAB PO SCH ×3 (06:08→21:32)
[2020-04-28 06:31] LABS: CALCIUM LEVEL 8.2 MG/DL (8.8-10.2); CREATININE FOR GFR 1.31 MG/DL (0.55-1.30); GLOMERULAR FILTRATION RATE 43.4 (>45)
--- NOTE | 2020-04-28 08:59 | REP ---
INDICATION: EVALUATE FEMORAL CORTICAL IRREGGULARITY. COMPARISON: X-ray 04/26/2020 TECHNIQUE: Axial CT images with soft tissue and bone window settings unfiltered with orthopedic metal artifact reduction algorithm software. Coronal and sagittal reconstructions provided. FINDINGS: Total knee arthroplasty components are noted. On the axial and sagittal reconstruction images along the posterior aspect of the distal femoral metaphysis involving the lateral femoral condyle, sharply defined cortical avulsion fracture measuring 19 x 15 mm and a thickness of about 5 mm maximum. There are few mm of distraction of the fragment. There is no of other visible fracture or bony destructive lesion. There is some joint fluid and other immediate postoperative changes with subcutaneous edema, small amounts of scattered subcutaneous air and 2 small air bubbles in the distal femoral shaft is associated with postoperative change as well. Likewise small air bubbles in the proximal tibial diametaphysis adjacent to the stem of the tibial plateau component of the arthroplasty as an expected immediate postoperative change. IMPRESSION: 19 x 15 x 5 mm cortical fragment as acute avulsion fracture off the posterior aspect of the lateral femoral condyle and distracted a few mm. Status post right total knee arthroplasty with postsurgical changes from that recent study as described. <Electronically signed by Junito John > 04/28/20 [id number]
--- NOTE | 2020-04-28 09:04 | IPNPDOC ---
Text Note Date of Service The patient was seen on 04/28/20. NOTE Subjective: Patient was seen and examined at the bedside. Patient has had an uneventful evening. She denies any chest pain, shortness breath, palpitations. Denies any nausea, vomiting, abdominal pain or diarrhea. Patient reports her pain is well- controlled. However, her right knee does appear to be oozing blood still. Objective: Vitals (See below) General: Lying in bed, appears comfortable, AAOx3 HEENT: NC, AT CVS: RRR, +S1S2 Lungs: Fair air entry b/l, no appreciable wheezing, rhonchi or rales Abdomen: Soft, nondistended and nontender Extremities: No appreciable edema, - Calf tenderness Assessment and plan: Elective total right total knee arthroplasty (POD#2) - Presented to [facility] for an elective orthopedic procedure - As received outpatient medical clearance from her primary care provider - Pain control, anticoagulation and physical therapy at the direction of primary orthopedic team CKD3 - Cr baseline of 1.3-1.5 - Cr currently at baseline Leukocytosis - likely 2/2 reactive etiology - Patient remains afebrile and hemodynamically stable - Review of systems is negative for any source of infection - Will hold off on antibiotics at this time Hypertension - BP elevated this morning - likely 2/2 pain - c/w carvedilol, furosemide with hold parameters Osteopenia - c/w Alendronate on discharge Depression - c/w duloxetine, Celexa Obesity - BMI of 36.4 - Complicating medical care Insomnia and nightmares - c/w Ambien, lorazepam Hyperlipidemia - Will c/w Rosuvastatin on discharge Migraines - c/w topiramate GERD - c/w Omeprazole DVT prophylaxis - As per orthopedic surgery Disposition: - Once cleared by orthopedic surgery VS,Wilfridobone, I+O VS, Fishbone, I+O Laboratory Tests 04/27/20 17:16 04/28/20 05:18 Vital Signs Date Time Temp Pulse Resp B/P (MAP) Pulse Ox O2 Delivery O2 Flow Rate FiO2 04/28/20 06:38 18 04/28/20 06:00 98.0 83 170/83 (112) 97 Room Air 04/26/20 10:28 3 I&O- Last 24 Hours up to 6 AM 04/28/20 06:00 Intake Total 1180 ml Output Total 1550 ml Balance -370 ml ELIEL LEVY MD Apr 28, 2020 09:04
[2020-04-28] MEDS: DOCUSATE SODIUM 100 MG CAP PO SCH ×2 (09:24→21:33)
[2020-04-28] MEDS: OMEPRAZOLE 20 MG CAP PO SCH (09:24)
[2020-04-28] MEDS: FUROSEMIDE 20 MG TAB PO SCH (09:25)
[2020-04-28] MEDS: POTASSIUM CHLORIDE 10 MEQ SR TABLET PO SCH (09:25)
[2020-04-28] MEDS: TOPIRAMATE (TopAMAX) 25 MG TAB PO SCH (09:25)
[2020-04-28] MEDS: CitaloPRAM (CeleXA) 20 MG TAB PO SCH ×2 (09:26→21:33)
[2020-04-28] MEDS: CARVedilol 12.5 MG TAB PO SCH ×2 (09:26→21:32)
--- NOTE | 2020-04-28 12:21 | ROES ---
DATE OF OPERATION: 04/26/2020 PREOPERATIVE DIAGNOSIS: Right knee osteoarthritis. POSTOPERATIVE DIAGNOSIS: Right knee osteoarthritis. PROCEDURE PERFORMED: Right total knee replacement. SURGEON: Fortino Manley MD. JALOUSIE INSTALLER: Killian Wyatt PA-C. ANESTHESIA: Spinal with block. ESTIMATED BLOOD LOSS: Less than 60 mL replaced with crystalloid. COMPLICATIONS: No complications. TOURNIQUET: Tourniquet was utilized. Tourniquet time was 19 minutes at 250. COMPONENTS USED: DePuy Attune posterior stabilized rotating platform knee replacement, size 5 femoral component, size 5 tibial component, size 6 mm polyethylene spacer, size 35 mm patellar button, and one packet of radiopaque bone cement. CONSENT: Consent reviewed in detail including colton discussion of the pathology involved, the procedure proposed, the alternatives including doing nothing, and risks including but not limited to pain, failure, infection, bleeding, blood loss, incomplete relief of symptoms, need for additional surgery, or some other issue. She agreed to proceed. OPERATIVE COURSE: Identified in the holding area. Site and side verified. Block was administered in the holding area. Brought to the operating room. Spinal anesthesia administered. Positioned in usual fashion for exposure of the right lower extremity for arthroplasty. Tourniquet placed high on the right thigh. Next, sterilely prepped and draped in the usual fashion. Next, once I and the travel counselor were comfortable with patient's positioning, we began the procedure. Line of the incision outlined with the marking pen infiltrated with 0.25% Marcaine with epinephrine. The incision was made with a 10 blade developed down through skin and subcuticular tissues to the extensor mechanism. Medial parapatellar arthrotomy was accomplished. Patella was everted. Infrapatellar fat pad was removed. Supracondylar fat was removed. Medial release was accomplished sharply using a 10 blade. Once the patella was everted, the knee was placed in the flexed position. Femoral canal was entered with the canal opening drill. Distal femoral alignment guide was then pinned to the distal femur. Intramedullary guide was removed. I placed Hohmann retractors, and Mr. Wyatt made the distal femoral cut. Once this was accomplished, AP sizing guide was installed, predicted, and the size 5 pins were placed. Once this was accomplished 4-in-1 cutting block was installed on the pins and then pinned into place. Anterior and posterior cuts were made. Threaded pins were removed. Chamfer cuts were made. Recut on anterior femur was accomplished. The 4-in-1 guide was then removed. Next, the notch cutting block was installed, pinned into place. Notch cut was made with oscillating saw. I then utilized rasps to ensure notch cut was properly contoured. I had appreciated some cystic synovial fluid around the origin of the ACL, and there was a small bone cyst at the insertion of the ACL appreciated. Next, extramedullary tibial guide was installed, 4 mm of the medial compartment was appreciated. It was pinned into place. We verified it with drop corbin. Next, I placed Hohmann retractors. Proximal tibial cut was made with oscillating saw. Next, lamina spreaders were installed. Meniscal tissues were removed. Osteophyte was removed from the posterior femur using a curved osteotome and curettes. Next, irrigation was accomplished. Posterior capsule anesthetized using Exparel solution. Next, spacing block was utilized predicting the size 6 polyethylene in both flexion and extension. Next, tibial template was installed. Size 5 fit appropriately, pinned into place. Broach guide was installed and tamped into place. Tibial canal drill was utilized followed by the tibial broach which was left in place. I removed the threaded pins, and we installed the trial rotating platform polyethylene posterior stabilized. We then installed the femoral component, tamped it into place, the trial component. Next, we drilled the pin holes in the femoral component. Next, the knee was reduced, placed through a range of motion, and it appeared to be stable in varus and valgus stress. Patella tracking was excellent. The knee was extended. Patella inverted. Posterior patella cut was made with oscillating saw. We measured for a size 35 patella and drilled for that with the patella template. Trial patella was applied. Knee was placed through a range of motion and appreciated to have good patellofemoral tracking. Next, at this stage, Mr. Wyatt stepped to the back table to prepare bone cement, and I prepared the bone surfaces. This included instilling some TXA solution along the bone surfaces, elevating the extremity and inflating the tourniquet, and then using pulse lavage to irrigate the bone interstices and cancellous exposed bone to prepare for receiving the cement. The bone surfaces were dried. We applied cement to the tibial side, installed the tibial component, cleared excess cement, installed the cemented and installed the femoral component, tamped it into place, cleared excess cement, installed the rotating platform posterior stabilized polyethylene nontrial, placed the knee in extension, everted the patella, verified the posterior aspect was dry and clean, cemented the polyethylene patella component into place, applied clamps, and cleared excess cement. Next, once the cement had hardened, we removed clamps, irrigated with pulse lavage, irrigated with TXA, and anesthetized the periarticular tissues using Exparel solution. As the arthrotomy was closed, we deflated the tourniquet at 19 minutes. Next, the arthrotomy was closed with interrupted and a running Stratafix stitch. Deep dermis was closed with interrupted stitch and a Prineo dressing. The patient was moved to the recovery room in good condition. For further details please refer to the medical record. CASIE
[2020-04-28 14:00] VITALS: BP 164/81
[2020-04-28] MEDS: DULoxetine 30 MG CAP (CYMBALTA) PO SCH (21:33)
[2020-04-28] MEDS: LORazepam 0.5 MG TAB PO SCH (21:33)
[2020-04-28] MEDS: zolPIDEM TARTRATE 5 MG TAB PO SCH (21:34)
[2020-04-28 22:00] VITALS: BP 142/68
[2020-04-29] MEDS: ACETAMINOPHEN 500 MG TAB PO SCH (05:35)
[2020-04-29 06:00] VITALS: BP_SYST 142; BP_DIAS 68; BP_DIAS 84
[2020-04-29] MEDS: traMADol 50 MG TAB PO PRN ×2 (06:21→11:09)
[2020-04-29 07:31] LABS: HEMOGLOBIN 9.5 g/dl (12.0-15.5); MEAN CORPUSCULAR HEMOGLOBIN 28.4 pg (27.0-33.0); MEAN CORPUSCULAR HGB CONC 31.7 g/dl (32.0-36.5); MEAN CORPUSCULAR VOLUME 89.8 fl (80.0-96.0); PLATELET COUNT, AUTOMATED 251 10^3/uL (150-450); RED BLOOD COUNT 3.34 10^6/uL (4.00-5.40); WHITE BLOOD COUNT 13.7 10^3/uL (4.0-10.0)
[2020-04-29 07:55] LABS: CALCIUM LEVEL 8.2 MG/DL (8.8-10.2); CREATININE FOR GFR 1.03 MG/DL (0.55-1.30); GLOMERULAR FILTRATION RATE 57.3 (>45); POTASSIUM SERUM 4.3 MEQ/L (3.5-5.1)
--- NOTE | 2020-04-29 09:30 | IPNPDOC ---
Text Note Date of Service The patient was seen on 04/29/20. NOTE Subjective: Patient was seen and examined at the bedside. Patient denies any chest pain, shortness breath, palpitations. Has been working with physical therapy. Denies nausea, vomiting, abdominal pain or diarrhea. Objective: Vitals (See below) General: sitting up in bed and appears to be comfortable, AAOx3 HEENT: NC, AT CVS: RRR, +S1S2 Lungs: Fair air entry b/l, auscultation is free of rhonchi, rales or wheezing Abdomen: No distention or tenderness, remains soft Extremities: LE are without edema, - Calf tenderness Assessment and plan: Elective total right total knee arthroplasty (POD#3) - Presented to [facility] for an elective orthopedic procedure - As received outpatient medical clearance from her primary care provider - Pain control, anticoagulation and physical therapy at the direction of primary orthopedic team - Anticipate discharge today CKD3 - Cr baseline of 1.3-1.5 - Cr better than baseline Leukocytosis - likely 2/2 reactive etiology - Improving - Patient remains afebrile and hemodynamically stable - Review of systems is negative for any source of infection - Will hold off on antibiotics at this time Hypertension - BP well controlled - c/w carvedilol, furosemide with hold parameters Osteopenia - c/w Alendronate on discharge Depression - c/w duloxetine, Celexa Obesity - BMI of 36.4 - Complicating medical care Insomnia and nightmares - c/w Ambien, lorazepam Hyperlipidemia - c/w Rosuvastatin on discharge Migraines - c/w topiramate GERD - c/w Omeprazole DVT prophylaxis - As per orthopedic surgery Disposition: - Anticipate discharge home today VS,Wilfridobone, I+O VS, Fishbone, I+O Laboratory Tests 04/29/20 06:34 Vital Signs Date Time Temp Pulse Resp B/P (MAP) Pulse Ox O2 Delivery O2 Flow Rate FiO2 04/29/20 06:51 18 04/29/20 06:00 98.6 74 142/68 (92) 95 Room Air 04/26/20 10:28 3 I&O- Last 24 Hours up to 6 AM 04/29/20 06:00 Intake Total 2300 ml Output Total 1300 ml Balance 1000 ml ELIEL LEVY MD Apr 29, 2020 09:30
[2020-04-29] MEDS: CitaloPRAM (CeleXA) 20 MG TAB PO SCH (09:38)
[2020-04-29] MEDS: TOPIRAMATE (TopAMAX) 25 MG TAB PO SCH (09:38)
[2020-04-29] MEDS: OMEPRAZOLE 20 MG CAP PO SCH (09:38)
[2020-04-29] MEDS: FUROSEMIDE 20 MG TAB PO SCH (09:39)
[2020-04-29] MEDS: POTASSIUM CHLORIDE 10 MEQ SR TABLET PO SCH (09:39)
[2020-04-29] MEDS: DOCUSATE SODIUM 100 MG CAP PO SCH (09:39)
[2020-04-29 09:40] VITALS: BP 156/68
[2020-04-29] MEDS: CARVedilol 12.5 MG TAB PO SCH (09:40)
--- NOTE | 2020-05-04 07:13 | DS ---
DATE OF ADMISSION: 04/26/2020 DATE OF DISCHARGE: 04/29/2020 ATTENDING PHYSICIAN: Fortino Manley M.D. ADMITTING DIAGNOSIS: Right knee osteoarthritis. OTHER DIAGNOSES: * Hypertension. * Depression. * Impaired fasting glucose. * Insomnia. * Hyperlipidemia. * Peripheral edema. * Gastroesophageal reflux disease. * Migraine headaches. * Fatty liver. * Osteopenia. DISCHARGE DIAGNOSIS: Right knee osteoarthritis status post right total knee arthroplasty. HISTORY: Patient is a 64-year-old female with progressively worsening right knee pain and stiffness. She failed to improve with conservative measures. She continued to have symptoms with weightbearing activities and activities of daily living. She consented for an elective right total knee arthroplasty with Dr. Manley for her continued symptoms. OPERATION PERFORMED: Right total knee arthroplasty. HOSPITAL COURSE: The patient underwent a right total knee arthroplasty under spinal anesthesia which femoral nerve block. Surgery was uneventful. Patient did develop leukocytosis and worsening kidney function tests during her hospital stay which prolonged it a couple of days. She was; however, stable upon discharge. She was up with physical therapy per their protocol weightbearing as tolerated on the right lower extremity. Patient was discharged on oral pain medications and will resume her pre-operative medications and diet. Patient will use her thromboembolic deterrent stockings and take her anticoagulant as directed post-operatively to prevent deep venous thrombosis. Patient will follow up in our office in 12-14 days for a wound check and staple removal. She is encouraged to contact our office sooner if there is any increase in pain, redness, drainage, numbness or tingling in the extremity, fever greater than 101 degrees or any other concerns. Please see medical records for additional details. MTDMarleny
== END 2020-04-29 11:15 | disposition home or self-care (01) | DRG 470 ==
LOC: M OR 07:17 → M MS5PR 13:20
PROVIDERS: ADMIT Orthopaedic Surgery; ATTEND Orthopaedic Surgery
PROC: 0SRC0J9 Replacement of Right Knee Joint with Synthetic Substitute, Cemented, Open Approach (ICD-10-PCS; principal; 2020-04-26 10:15)
DX: M17.11 Unilateral primary osteoarthritis, right knee (principal); Z79.899 Other long term (current) drug therapy; I12.9 Hypertensive chronic kidney disease with stage 1 through stage 4 chronic kidney disease, or unspecified chronic kidney disease; E66.9 Obesity, unspecified; F32.9 Major depressive disorder, single episode, unspecified; E78.5 Hyperlipidemia, unspecified; G47.00 Insomnia, unspecified; M54.5 Low back pain; K21.9 Gastro-esophageal reflux disease without esophagitis; Z96.652 Presence of left artificial knee joint; Z95.2 Presence of prosthetic heart valve; G43.909 Migraine, unspecified, not intractable, without status migrainosus; Z68.36 Body mass index [BMI] 36.0-36.9, adult; N18.30 Chronic kidney disease, stage 3 unspecified; D72.829 Elevated white blood cell count, unspecified

== ENCOUNTER → 2020-05-07 | Outpatient (CLI) | payer MEDICARE, OTHER ==
[~2020-05-07] MED LIST changes: +COQ1200C3 PO; -LR 1,000 ML IV ONE; -NORCO, ANEXSIA 5/325MG TABLET (HYDROcodone/ACETAMINOPHEN) PO ONE; -PREGABALIN 75 MG CAP(LYRICA) PO ONE; +ROSU10TA6 PO; -ceFAZolin SOD 1 GM in D5W MINI-BAG PLUS 50 ML IV ONE; -ceFAZolin SOD 2 GM in IV 1 EA IV ONE
--- NOTE | 2020-05-07 16:34 | REP ---
INDICATION: PAIN IN R LEG, R/O DVT. COMPARISON: None. TECHNIQUE: Multiple ultrasonographic images of the deep venous structures of the right thigh were obtained from the common femoral vein to the popliteal vein along with Doppler interrogation and color flow Doppler images. FINDINGS: There is no abnormal echogenic material seen within any of the visualized deep venous structures that would suggest acute thrombosis. Coaptation is unremarkable throughout. Doppler interrogation shows an expected response to respiratory variability and augmentation. The color flow images show what appears to be a normal vascular pattern throughout. Anterior to the knee and superior to the patella there is a 7.1 x 2.2 x 9.1 cm sized complex fluid collection. IMPRESSION: There is no ultrasonographic evidence of deep venous thrombosis involving any of the visualized deep venous structures of the right thigh, as described above. 2. complex fluid collection as described above. Supra patellar bursal fluid versus abscess. Correlate clinically. <Electronically signed by Thai Lowe > 05/07/20 [id number]
== END ==
LOC: M RAD 15:46
PROVIDERS: ATTEND Physician Assistant
DX: M25.461 Effusion, right knee (principal); M79.604 Pain in right leg

== ENCOUNTER → 2020-08-11 | Outpatient (REF) | payer MEDICARE, OTHER ==
[~2020-08-11] MED LIST changes: +CYAN500T14 PO; -CYAN500T8 PO
[2020-08-11 12:19] LABS: HEMATOCRIT 43.8 % (36.0-47.0); HEMOGLOBIN 13.6 g/dl (12.0-15.5); MEAN CORPUSCULAR HEMOGLOBIN 28.3 pg (27.0-33.0); MEAN CORPUSCULAR HGB CONC 31.1 g/dl (32.0-36.5); MEAN CORPUSCULAR VOLUME 91.1 fl (80.0-96.0); PLATELET COUNT, AUTOMATED 325 10^3/uL (150-450); RED BLOOD COUNT 4.81 10^6/uL (4.00-5.40); WHITE BLOOD COUNT 9.9 10^3/uL (4.0-10.0)
[2020-08-11 12:48] LABS: ALBUMIN 3.6 GM/DL (3.2-5.2); BILIRUBIN,TOTAL 0.2 MG/DL (0.2-1.0); CALCIUM LEVEL 9.2 MG/DL (8.8-10.2); CHOLESTEROL RISK RATIO 5.021 (<5); CREATININE FOR GFR 1.31 MG/DL (0.55-1.30); GLOMERULAR FILTRATION RATE 43.2 (>45); POTASSIUM SERUM 4.7 MEQ/L (3.5-5.1); TOTAL PROTEIN 6.8 GM/DL (6.4-8.2)
[2020-08-11 12:53] LABS: TOTAL 25(OH) VITAMIN D 54.4 NG/ML (30.0-100.0)
[2020-08-11 13:22] LABS: HEMOGLOBIN A1c 5.5 %
== END ==
LOC: M SFHCCLAY 07:09
PROVIDERS: ATTEND Nurse Practitioner Family
DX: I10 Essential (primary) hypertension (principal); R73.01 Impaired fasting glucose; E78.5 Hyperlipidemia, unspecified; E55.9 Vitamin D deficiency, unspecified

== ENCOUNTER → 2020-10-25 | Outpatient (CLI) | payer MEDICARE, OTHER ==
[2020-10-25 10:44] LABS: CRYSTALS, BODY FLUID NONE SEEN (NONE SEEN); SOURCE, BODY FLUID CRYSTALS RT KNEE
[2020-10-25 10:52] LABS: SOURCE, BODY FLUID RT KNEE; SYNOVIAL FLUID COLOR RED (COLORLESS)
[2020-10-25 11:39] LABS: SOURCE, BODY FLUID GLUCOSE RT KNEE
[2020-10-25 12:26] LABS: BASO # 0.1 10^3/uL (0.0-0.2); BASO % 0.8 % (0.0-1.0); EOS # 0.1 10^3/uL (0.0-0.5); EOS % 1.5 % (0.0-3.0); HEMOGLOBIN 12.7 g/dl (12.0-15.5); LYMPH # 2.8 10^3/uL (1.5-5.0); LYMPH % 30.5 % (24.0-44.0); MEAN CORPUSCULAR HEMOGLOBIN 28.6 pg (27.0-33.0); MEAN CORPUSCULAR VOLUME 92.3 fl (80.0-96.0); MONO # 0.8 10^3/uL (0.0-0.8); MONO % 9.2 % (2.0-8.0); NEUTROPHILS # 5.3 10^3/uL (1.5-8.5); NEUTROPHILS % 57.8 % (36.0-66.0); PLATELET COUNT, AUTOMATED 319 10^3/uL (150-450); RED BLOOD COUNT 4.44 10^6/uL (4.00-5.40); WHITE BLOOD COUNT 9.1 10^3/uL (4.0-10.0)
[2020-10-25 12:51] LABS: ERYTHROCYTE SEDIMENTATION RATE 23 mm/hr (0-30)
[2020-10-25 15:41] LABS: MUCIN CLOT TEST 4+ (4+)
[2020-10-25 15:59] LABS: C REACTIVE PROTEIN QUANTITATIV 1.84 MG/DL (0.00-0.30); RHEUMATOID FACTOR QUANT < 10.0 IU/ML (<15.0)
[2020-10-26 09:21] LABS: BODY FLUID RHEUMATOID SCREEN NEGATIVE (NEGATIVE)
== END ==
LOC: M WUC 10:22
PROVIDERS: ATTEND Orthopaedic Surgery
DX: M25.461 Effusion, right knee (principal); Z96.651 Presence of right artificial knee joint

== ENCOUNTER → 2020-11-10 | Outpatient (CLI) | payer MEDICARE, OTHER ==
--- NOTE | 2020-11-10 13:53 | REP ---
INDICATION: RT KNEE PAIN ? LOOSENING. Left knee arthroplasty March of 2019, right knee arthroplasty April of 2020. COMPARISON: Comparison right knee radiographs April 26, 2020.. TECHNIQUE: 22.0 mCi of technetium 99 M MDP is injected and standard 3 phase imaging of the knees is acquired. FINDINGS: Anterior and posterior flow images demonstrate hyperemia about the right knee joint. Blood pool images demonstrate soft tissue hyperemia about the distal femoral and to a lesser extent proximal tibial and patellar components of the arthroplasty. Delayed scan images demonstrate expected bone/prosthesis interface uptake about the patellar, femoral, and tibial prosthetic components. This is not focal although it is asymmetric more prominent on the right than the left. No soft tissue hyperemia is seen on the left either. There is no focal area of increased uptake on either side to suggest loosening. IMPRESSION: Bone/prosthesis interface uptake associated with bilateral knee arthroplasties, right more avid than left but not focal. No evidence to suggest loosening. <Electronically signed by Nabor Clarke > 11/10/20 [id number]
== END ==
LOC: M RAD 09:41
PROVIDERS: ATTEND Orthopaedic Surgery
DX: Z96.653 Presence of artificial knee joint, bilateral (principal)
CPT/HCPCS: 78315; A9503

== ENCOUNTER → 2020-11-25 | Outpatient (REF) | payer MEDICARE, OTHER ==
[2020-11-25 18:21] LABS: SOURCE, BODY FLUID RT KNEE; SOURCE, BODY FLUID CRYSTALS RT KNEE; SYNOVIAL FLUID COLOR RED (COLORLESS)
[2020-11-25 18:25] LABS: CRYSTALS, BODY FLUID NONE SEEN (NONE SEEN)
[2020-11-25 19:52] LABS: SOURCE, BODY FLUID GLUCOSE RT KNEE
[2020-11-26 09:19] LABS: BODY FLUID RHEUMATOID SCREEN NEGATIVE (NEGATIVE)
[2020-11-26 09:20] LABS: MUCIN CLOT TEST 4+ (4+)
== END ==
LOC: M LAB REF 17:58
PROVIDERS: ATTEND Orthopaedic Surgery
DX: M25.561 Pain in right knee (principal)

== ENCOUNTER → 2020-12-07 | Outpatient (REF) | payer MEDICARE, OTHER ==
[2020-12-07 13:10] LABS: ALBUMIN 3.7 GM/DL (3.2-5.2); ALT/SGPT 14 U/L (12-78); BILIRUBIN,DIRECT < 0.1 MG/DL (0.0-0.2); BILIRUBIN,TOTAL 0.3 MG/DL (0.2-1.0); CHOLESTEROL LEVEL 210 MG/DL (<200); CHOLESTEROL RISK RATIO 4.038 (<5); HDL CHOLESTEROL 52 MG/DL (>40); LDL CHOLESTEROL 108 MG/DL (<100); NON-HDL-C 158 MG/DL; TOTAL PROTEIN 6.8 GM/DL (6.4-8.2); TRIGLYCERIDES LEVEL 252 MG/DL (<150)
== END ==
LOC: M SFHCCLAY 07:04
PROVIDERS: ATTEND Nurse Practitioner Family
DX: E78.5 Hyperlipidemia, unspecified (principal)

== ENCOUNTER → 2021-01-26 | Outpatient (REF) | payer MEDICARE, OTHER ==
[2021-01-26 16:46] LABS: CALCIUM LEVEL 8.7 MG/DL (8.8-10.2); CREATININE FOR GFR 1.2 MG/DL (0.55-1.30); GLOMERULAR FILTRATION RATE 47.8 (>45); POTASSIUM SERUM 4.5 MEQ/L (3.5-5.1)
[2021-01-26 16:48] LABS: HEMATOCRIT 42.4 % (36.0-47.0); HEMOGLOBIN 13.3 g/dl (12.0-15.5); MEAN CORPUSCULAR HGB CONC 31.4 g/dl (32.0-36.5); MEAN CORPUSCULAR VOLUME 92.6 fl (80.0-96.0); PLATELET COUNT, AUTOMATED 289 10^3/uL (150-450); RED BLOOD COUNT 4.58 10^6/uL (4.00-5.40); WHITE BLOOD COUNT 10.3 10^3/uL (4.0-10.0)
[2021-01-26 17:20] LABS: INR 0.94
== END ==
LOC: M SFHCCLAY 09:54
PROVIDERS: ATTEND Family Medicine
DX: Z01.818 Encounter for other preprocedural examination (principal); M25.561 Pain in right knee
CPT/HCPCS: 80048; 85027; 85610; 93005; G0463

== ENCOUNTER → 2021-06-27 | Outpatient (REF) | payer MEDICARE, OTHER ==
[~2021-06-27] MED LIST changes: -VERA180T3 PO; +VERA180T42 PO
[2021-06-27 12:47] LABS: CHOLESTEROL RISK RATIO 4.291 (<5)
[2021-06-27 12:52] LABS: HEMOGLOBIN A1c 5.5 %
[2021-06-27 12:59] LABS: TOTAL 25(OH) VITAMIN D 66.9 NG/ML (30.0-100.0)
== END ==
LOC: M SFHCCLAY 07:07
PROVIDERS: ATTEND Family Medicine
DX: R73.01 Impaired fasting glucose (principal); E78.5 Hyperlipidemia, unspecified; E55.9 Vitamin D deficiency, unspecified; Z79.899 Other long term (current) drug therapy

== ENCOUNTER → 2021-09-26 | Outpatient (CLI) | payer MEDICARE, OTHER ==
[~2021-09-26] MED LIST changes: -D31000TA2 PO; +VITA100093 PO
== END ==
LOC: M RAD 09:44
PROVIDERS: ATTEND Otolaryngology
DX: J32.4 Chronic pansinusitis (principal)

== ENCOUNTER → 2021-12-20 | Outpatient (CLI) | payer MEDICARE, OTHER | LOC: M RAD 13:36 | PROVIDERS: ATTEND Otolaryngology | DX: J32.4 Chronic pansinusitis (principal) ==

== ENCOUNTER → 2021-12-27 | Outpatient (REF) | payer MEDICARE, OTHER ==
[~2021-12-27] MED LIST changes: -CLAR5TAB PO; +DESL5TAB28 PO
== END ==
LOC: M LAB REF 16:04
PROVIDERS: ATTEND Otolaryngology
DX: J31.0 Chronic rhinitis (principal)

== ENCOUNTER → 2022-05-31 | Outpatient (CLI) | payer MEDICARE, OTHER ==
[~2022-05-31] MED LIST changes: +ALEN70TA87 PO; +CLOP75TA99 PO; -FOSA70TA PO; -PLAV1TAB2 PO
[2022-05-31 11:22] LABS: ALBUMIN 3.2 G/DL (3.2-5.2); ALKALINE PHOSPHATASE 63 U/L (46-116); ALT/SGPT 12 U/L (7.0-40); AST/SGOT 9 U/L (<34); BILIRUBIN,DIRECT < 0.1 MG/DL (<0.4); BILIRUBIN,TOTAL 0.2 MG/DL (0.3-1.2); CHOLESTEROL LEVEL 186 MG/DL (<200); CHOLESTEROL RISK RATIO 3.78 (<5); HDL CHOLESTEROL 49.1 MG/DL (>40); LDL CHOLESTEROL 91.7 MG/DL (<100); NON-HDL-C 137 MG/DL; THYROID STIMULATING HORMONE 2.177 uIU/ML (0.55-4.78); TOTAL PROTEIN 5.8 G/DL (5.7-8.2); TRIGLYCERIDES LEVEL 226 MG/DL (<150)
== END ==
LOC: M PLAIMG 07:11
PROVIDERS: ATTEND Family Medicine
DX: I25.10 Atherosclerotic heart disease of native coronary artery without angina pectoris (principal); Z79.899 Other long term (current) drug therapy; R05.9 Cough, unspecified

== ENCOUNTER → 2022-11-21 | Outpatient (CLI) | payer MEDICARE, OTHER ==
[~2022-11-21] MED LIST changes: +POTA-298 PO; -POTA10CA32 PO; +POTA10CA33 PO; -POTA1TAB14 PO
[2022-11-21 10:21] LABS: BASO # 0.1 10^3/uL (0.0-0.2); BASO % 0.9 % (0.0-1.0); EOS # 0.3 10^3/uL (0.0-0.5); EOS % 2.8 % (0.0-3.0); HEMATOCRIT 41.7 % (36.0-47.0); HEMOGLOBIN 13.4 g/dl (12.0-15.5); LYMPH % 29.3 % (24.0-44.0); MEAN CORPUSCULAR HEMOGLOBIN 29.3 pg (27.0-33.0); MEAN CORPUSCULAR HGB CONC 32.1 g/dl (32.0-36.5); MONO % 10.1 % (2.0-8.0); NEUTROPHILS # 5.7 10^3/uL (1.5-8.5); NEUTROPHILS % 56.7 % (36.0-66.0); PLATELET COUNT, AUTOMATED 265 10^3/uL (150-450); RED BLOOD COUNT 4.58 10^6/uL (4.00-5.40); WHITE BLOOD COUNT 10.1 10^3/uL (4.0-10.0)
[2022-11-21 10:45] LABS: URIC ACID 10.6 MG/DL (3.1-7.8)
[2022-11-21 10:49] LABS: ALBUMIN 3.9 G/DL (3.2-5.2); BILIRUBIN,TOTAL 0.3 MG/DL (0.3-1.2); CALCIUM LEVEL 8.8 MG/DL (8.3-10.6); CREATININE FOR GFR 1.78 MG/DL (0.55-1.30); GLOMERULAR FILTRATION RATE 30.2 (>45); POTASSIUM SERUM 4.9 MMOL/L (3.5-5.1); RHEUMATOID FACTOR QUANT 5.4 IU/ML (<14); THYROID STIMULATING HORMONE 1.796 uIU/ML (0.55-4.78); TOTAL PROTEIN 6.4 G/DL (5.7-8.2)
[2022-11-21 10:55] LABS: ERYTHROCYTE SEDIMENTATION RATE 19 mm/hr (0-30)
[2022-11-22 15:08] LABS: IgG P18 AB Absent (.); IgG P23 AB Absent (.); IgG P28 AB Absent (.); IgG P30 AB Absent (.); IgG P39 AB Absent (.); IgG P41 AB Absent (.); IgG P45 AB Absent (.); IgG P66 AB Absent (.); IgG P93 AB Absent (.); IgM P23 AB Absent (.); IgM P39 AB Absent (.); IgM P41 AB Absent (.); LYME IgG WB INTERPRETATION Negative (.); LYME IgM WB INTERPRETATION Negative (.)
[2022-11-22 21:07] LABS: ANTINUCLEAR ANTIBODIES DIRECT Negative (Negative); CYCLIC CITRULLINATED PEPTIDE 2 units (0-19)
== END ==
LOC: M LAB 09:43
PROVIDERS: ATTEND Family Medicine
DX: M25.50 Pain in unspecified joint (principal); R19.7 Diarrhea, unspecified; R53.81 Other malaise

== ENCOUNTER → 2022-12-01 | Outpatient (CLI) | payer MEDICARE, OTHER | LOC: M WHC 10:31 | PROVIDERS: ATTEND Family Medicine | DX: Z12.31 Encounter for screening mammogram for malignant neoplasm of breast (principal) ==

== ENCOUNTER → 2023-01-05 | Outpatient (CLI) | payer MEDICARE, OTHER ==
[~2023-01-05] MED LIST changes: -POTA10CA33 PO; +POTA10CA60 PO
[2023-01-05 10:24] LABS: CALCIUM LEVEL 8.8 MG/DL (8.3-10.6); CREATININE FOR GFR 1.21 MG/DL (0.55-1.30); GLOMERULAR FILTRATION RATE 47.1 (>45); POTASSIUM SERUM 4.6 MMOL/L (3.5-5.1)
== END ==
LOC: M LAB 09:14
PROVIDERS: ATTEND Ophthalmology
DX: H02.423 Myogenic ptosis of bilateral eyelids (principal)

== ENCOUNTER → 2023-05-22 | Outpatient (CLI) | payer MEDICARE, OTHER | LOC: M WUC 12:12 | PROVIDERS: ATTEND Nurse Practitioner Family | DX: M25.532 Pain in left wrist (principal) ==

== ENCOUNTER → 2023-11-20 | Outpatient (CLI) | payer MEDICARE, OTHER ==
[~2023-11-20] MED LIST changes: -POTA10CA60 PO; +POTA10CA70 PO; -ROSU10TA6 PO; +ROSU10TA61 PO
[2023-11-20 09:02] LABS: BASO # 0.1 10^3/uL (0.0-0.2); BASO % 0.7 % (0.0-1.0); EOS # 0.2 10^3/uL (0.0-0.5); EOS % 1.2 % (0.0-3.0); HEMATOCRIT 39.8 % (36.0-47.0); HEMOGLOBIN 12.5 g/dl (12.0-15.5); LYMPH # 4.4 10^3/uL (1.5-5.0); LYMPH % 36.7 % (24.0-44.0); MEAN CORPUSCULAR HGB CONC 31.4 g/dl (32.0-36.5); MEAN CORPUSCULAR VOLUME 92.3 fl (80.0-96.0); MONO % 8.4 % (2.0-8.0); NEUTROPHILS # 6.4 10^3/uL (1.5-8.5); NEUTROPHILS % 52.8 % (36.0-66.0); PLATELET COUNT, AUTOMATED 281 10^3/uL (150-450); RED BLOOD COUNT 4.31 10^6/uL (4.00-5.40); WHITE BLOOD COUNT 12.1 10^3/uL (4.0-10.0)
[2023-11-20 09:19] LABS: HEMOGLOBIN A1c 5.5 % (4.0-6.0)
[2023-11-20 09:34] LABS: ALBUMIN 3.3 G/DL (3.2-5.2); ALKALINE PHOSPHATASE 68 U/L (46-116); ALT/SGPT 16 U/L (7.0-40); AST/SGOT < 8 U/L (<34); BILIRUBIN,TOTAL 0.4 MG/DL (0.3-1.2); BLOOD UREA NITROGEN 37 MG/DL (9-23); CALCIUM LEVEL 9.4 MG/DL (8.3-10.6); CARBON DIOXIDE LEVEL 28 MMOL/L (20-31); CHLORIDE LEVEL 110 MMOL/L (98-107); CHOLESTEROL LEVEL 198 MG/DL (<200); CHOLESTEROL RISK RATIO 3.12 (<5); CREATININE FOR GFR 1.28 MG/DL (0.55-1.30); GLUCOSE, FASTING 74 MG/DL (74-106); HDL CHOLESTEROL 63.3 MG/DL (>40); LDL CHOLESTEROL 82.1 MG/DL (<100); NON-HDL-C 134.7 MG/DL; POTASSIUM SERUM 4.6 MMOL/L (3.5-5.1); SODIUM LEVEL 144 MMOL/L (136-145); TRIGLYCERIDES LEVEL 263 MG/DL (<150)
[2023-11-20 09:35] LABS: TOTAL 25(OH) VITAMIN D 40.1 NG/ML (20.0-100.0)
== END ==
LOC: M LAB 07:48
PROVIDERS: ATTEND Family Medicine
DX: M85.9 Disorder of bone density and structure, unspecified (principal); I25.10 Atherosclerotic heart disease of native coronary artery without angina pectoris; E78.5 Hyperlipidemia, unspecified; Z79.899 Other long term (current) drug therapy

== ENCOUNTER → 2023-11-20 | Outpatient (CLI) | payer MEDICARE, OTHER ==
[2023-11-20 09:32] LABS: CHOLESTEROL RISK RATIO 3.23 (<5); HDL CHOLESTEROL 61.2 MG/DL (>40); LDL CHOLESTEROL 82.4 MG/DL (<100); NON-HDL-C 136.8 MG/DL
== END ==
LOC: M LAB 07:51
PROVIDERS: ATTEND Nurse Practitioner Family
DX: E78.5 Hyperlipidemia, unspecified (principal)

== ENCOUNTER → 2023-12-21 | Outpatient (CLI) | payer MEDICARE, OTHER | LOC: M RAD 10:35 | PROVIDERS: ATTEND Family Medicine | DX: Z12.2 Encounter for screening for malignant neoplasm of respiratory organs (principal); F17.210 Nicotine dependence, cigarettes, uncomplicated ==

== ENCOUNTER → 2023-12-28 | Outpatient (CLI) | payer MEDICARE, OTHER | LOC: M WHC 10:03 | PROVIDERS: ATTEND Family Medicine | DX: Z12.31 Encounter for screening mammogram for malignant neoplasm of breast (principal); M81.0 Age-related osteoporosis without current pathological fracture ==

== ENCOUNTER → 2024-01-28 | Outpatient (CLI) | payer MEDICARE, OTHER ==
[2024-01-28 10:16] LABS: BASO # 0.1 10^3/uL (0.0-0.2); BASO % 0.5 % (0.0-1.0); EOS # 0.2 10^3/uL (0.0-0.5); EOS % 1.1 % (0.0-3.0); HEMATOCRIT 38.6 % (36.0-47.0); HEMOGLOBIN 12.1 g/dl (12.0-15.5); LYMPH # 2.6 10^3/uL (1.5-5.0); LYMPH % 19.7 % (24.0-44.0); MEAN CORPUSCULAR HEMOGLOBIN 28.8 pg (27.0-33.0); MEAN CORPUSCULAR HGB CONC 31.3 g/dl (32.0-36.5); MEAN CORPUSCULAR VOLUME 91.9 fl (80.0-96.0); MONO # 1.2 10^3/uL (0.0-0.8); MONO % 8.9 % (2.0-8.0); NEUTROPHILS # 9.2 10^3/uL (1.5-8.5); NEUTROPHILS % 69.3 % (36.0-66.0); PLATELET COUNT, AUTOMATED 374 10^3/uL (150-450); WHITE BLOOD COUNT 13.3 10^3/uL (4.0-10.0)
[2024-01-28 10:48] LABS: ALBUMIN 3.2 G/DL (3.2-5.2); BILIRUBIN,TOTAL 0.3 MG/DL (0.3-1.2); CALCIUM LEVEL 8.4 MG/DL (8.3-10.6); CREATININE FOR GFR 1.19 MG/DL (0.55-1.30); GLOMERULAR FILTRATION RATE 47.9 (>45); TOTAL PROTEIN 5.7 G/DL (5.7-8.2)
== END ==
LOC: M WUC 08:34
PROVIDERS: ATTEND Family Medicine
DX: Z01.818 Encounter for other preprocedural examination (principal); Z79.899 Other long term (current) drug therapy

== ENCOUNTER → 2024-01-28 | Outpatient (CLI) | payer MEDICARE, OTHER | LOC: M WUC 08:37 | PROVIDERS: ATTEND Nurse Practitioner Family | DX: Z01.818 Encounter for other preprocedural examination (principal); M25.461 Effusion, right knee; M19.072 Primary osteoarthritis, left ankle and foot; M25.561 Pain in right knee; M25.572 Pain in left ankle and joints of left foot; W01.10XA Fall on same level from slipping, tripping and stumbling with subsequent striking against unspecified object, initial encounter; Z96.651 Presence of right artificial knee joint; Z79.899 Other long term (current) drug therapy; Y92.9 Unspecified place or not applicable; Y93.9 Activity, unspecified; Y99.9 Unspecified external cause status ==

== ENCOUNTER → 2024-03-31 | Outpatient (REF) | payer MEDICARE, OTHER | LOC: M LAB REF 09:56 | PROVIDERS: ATTEND Family Medicine | DX: R19.7 Diarrhea, unspecified (principal) ==

== ENCOUNTER → 2024-06-03 | Outpatient (REF) | payer MEDICARE, OTHER ==
[~2024-06-03] MED LIST changes: -DESL5TAB28 PO; +DESL5TAB30 PO
[2024-06-03 18:15] LABS: PERCENT SATURATION 22.2 % (13.2-45.0)
[2024-06-03 18:17] LABS: FERRITIN 201.6 NG/ML (7.3-270.7)
== END ==
LOC: M LAB REF 17:03
PROVIDERS: ATTEND Nurse Practitioner Family
DX: D50.9 Iron deficiency anemia, unspecified (principal)

== ENCOUNTER → 2024-06-27 | Outpatient (REF) | payer MEDICARE, OTHER | LOC: M LAB REF 17:00 | PROVIDERS: ATTEND Nurse Practitioner Family | DX: N39.0 Urinary tract infection, site not specified (principal) ==

== ENCOUNTER → 2024-09-11 | Outpatient (CLI) | payer MEDICARE, OTHER ==
[2024-09-11 16:59] LABS: HEMATOCRIT 35.5 % (36.0-47.0); HEMOGLOBIN 11.2 g/dl (12.0-15.5); MEAN CORPUSCULAR HGB CONC 31.5 g/dl (32.0-36.5); MEAN CORPUSCULAR VOLUME 88.8 fl (80.0-96.0); PLATELET COUNT, AUTOMATED 362 10^3/uL (150-450); WHITE BLOOD COUNT 7.3 10^3/uL (4.0-10.0)
[2024-09-11 17:24] LABS: CALCIUM LEVEL 8.9 MG/DL (8.3-10.6); CREATININE FOR GFR 1.09 MG/DL (0.55-1.30); GLOMERULAR FILTRATION RATE 52.8 (>39); POTASSIUM SERUM 4.6 MMOL/L (3.5-5.1)
== END ==
LOC: M RAD 15:59 → M LAB 15:59
PROVIDERS: ATTEND Surgery
DX: R50.82 Postprocedural fever (principal); Z90.49 Acquired absence of other specified parts of digestive tract

== ENCOUNTER → 2025-01-27 | Outpatient (CLI) | payer MEDICARE, OTHER ==
[~2025-01-27] MED LIST changes: -AMBI10TA PO; +TOPI-256 PO; -TOPI25TA10 PO; +ZOLP-533 PO
[2025-01-27 11:56] LABS: CHOLESTEROL LEVEL 100.0 MG/DL (<200); CHOLESTEROL RISK RATIO 1.67 (<5); LDL CHOLESTEROL 14.2 MG/DL (<100); NON-HDL-C 40.2 MG/DL; TRIGLYCERIDES LEVEL 130.0 MG/DL (<150)
== END ==
LOC: M LAB 09:15
PROVIDERS: ATTEND Nurse Practitioner Acute Care
DX: E78.5 Hyperlipidemia, unspecified (principal)

== ENCOUNTER → 2025-02-27 | Outpatient (CLI) | payer MEDICARE, OTHER | LOC: M RAD 07:23 | PROVIDERS: ATTEND Family Medicine | DX: J18.9 Pneumonia, unspecified organism (principal) ==

== ENCOUNTER → 2025-04-21 | Outpatient (CLI) | payer MEDICARE, OTHER ==
[~2025-04-21] MED LIST changes: -ROSU10TA61 PO; +ROSU10TA90 PO
== END ==
LOC: M WHC 14:11
PROVIDERS: ATTEND Family Medicine
DX: Z12.31 Encounter for screening mammogram for malignant neoplasm of breast (principal); R92.323 Mammographic fibroglandular density, bilateral breasts

== ENCOUNTER → 2025-05-25 | Outpatient (CLI) | payer MEDICARE, OTHER ==
[2025-05-25 13:07] LABS: RHEUMATOID FACTOR QUANT 4.0 IU/ML (<14)
== END ==
LOC: M LAB 11:59
PROVIDERS: ATTEND Family Medicine
DX: M25.50 Pain in unspecified joint (principal)

== ENCOUNTER → 2025-06-22 | Outpatient (CLI) | payer MEDICARE, OTHER | LOC: M WUC 15:14 | PROVIDERS: ATTEND Family Medicine | DX: M25.561 Pain in right knee (principal); Z96.651 Presence of right artificial knee joint ==